=== PATIENT | female | born 1945 | race Caucasian/White ===

== ENCOUNTER 2019-08-12 14:31 | Inpatient (IN) ==
[2019-08-12] MEDS ORDERED: IOPAMIDOL 100 ML BOTTLE IV ONE (14:32)
[2019-08-12] MEDS ORDERED: PIPERACILLIN SODIUM/TAZOBACTAM 3.375 GM in DEXTROSE 5% IN WATER 50 ML IV ONE (15:12)
[2019-08-12 15:24] LABS: POC Blood Urea Nitrogen 13 mg/dl (8-23); POC CO2 21 mmol/L (22-30); POC Calcium, Ionized 1.11 mmol/L (1.16-1.32); POC Chloride 108 mmol/L (96-108); POC Creatinine 0.7 mg/dl (0.6-1.1); POC Glucose, Random 155 mg/dL (70-105); POC Sodium 140 mmol/L (133-145)
[2019-08-12] MEDS ORDERED: ONDANSETRON 4 MG/2 ML VIAL IV ONE (15:53)
[2019-08-12 16:25] LABS: ALT/SGPT 135 U/l (0-40); AST/SGOT 163 U/l (0-37); Albumin 4.5 gm/dL (3.2-5.2); Albumin/Globulin Ratio 1.5 (1.0-2.3); Alkaline Phosphatase 98 U/L (39-117); Bilirubin,Total 0.6 mg/dL (0.0-1.0); Blood Urea Nitrogen 12 mg/dl (8-23); Calcium 9.6 mg/dl (8.6-10.4); Carbon Dioxide 18 mmol/L (22-30); Chloride 102 mmol/L (96-108); Glomerular Filtration Rate 72; Glucose 154 mg/dL (70-105)
[2019-08-12 16:32] LABS: Basophils # (Auto) 0.04 K/mcL (0.00-0.30); Basophils % (Auto) 0.3 % (0.0-2.0); Eosinophils # (Auto) 0 K/mcL (0.00-0.70); Eosinophils % (Auto) 0 % (0.0-7.0); Granulocytes % (Auto) 84.8 % (38.0-78.0); Hematocrit 39.4 % (34.1-44.9); Hemoglobin 13.3 g/dL (11.2-15.7); Lymphocytes # (Auto) 1.26 K/mcL (1.50-4.80); Lymphocytes % (Auto) 9.9 % (15.5-49.0); Mean Cell Volume 93.1 fL (80.0-100.0); Mean Corpuscular HGB Conc 33.8 g/dL (31.0-36.0); Monocytes # (Auto) 0.64 K/mcL (0.10-0.90); Platelet Count 232 K/mcL (140-440); RBC 4.23 M/mcL (3.59-5.38); Red Cell Distribution Width 13.9 % (11.5-14.5); WBC 12.7 K/mcL (4.50-11.00)
--- NOTE | 2019-08-12 16:35 | Emergency Department Note ---
Abdominal Pain HPI - General Chief Complaint: Abdominal Pain Stated Complaint: abdominal pain with shortness of breath Time Seen by Provider: 08/12/19 14:38 Source: patient Mode of arrival: ambulatory Limitations: no limitations - History of Present Illness HPI Narrative: 73-year-old female presents with sudden onset of nausea and vomiting with both abdominal pain and shortness of breath last night. Continued throughout the night and she was miserable. Presented to minor care today and they sent her over here due to abdominal distention and shortness of breath. No chest pain but describes diffuse upper abdominal pain which is worse on the right side but does spread all the way across the upper abdomen. Has had some diarrhea in the last 10 hours as well. No fever or chills. Denies cough or cold symptoms but states she does get short of breath at times. No difficulty breathing. No sore throat or ear pain. No nasal congestion. No headache. No leg pain or swelling. - Related Data Home Medications Medication Instructions Recorded Confirmed escitalopram oxalate 10 mg tablet 10 mg PO QHS tab 04/26/19 08/12/19 Allergies Allergy/AdvReac Type Severity Reaction Status Date / Time No Known Drug Allergies Allergy Verified 08/12/19 13:44 Review of Systems All systems ED: reviewed and negative except as stated. Abdominal Pain PMH - Past Medical History FORMERLY [facility], 1928–1983 Narrative: Medical History (Last Reviewed 08/12/19 @ 13:47 by Bernadette Nickerson PA-C) Encounter for cervical Pap smear with pelvic exam (Chronic 11/21/12) Hx of mammogram (Chronic 08/13/15) Well adult exam (Chronic) Impacted cerumen, bilateral (Chronic) Diverticulitis of colon without hemorrhage (Chronic) Diverticulosis of colon without hemorrhage (Chronic) Past Surgical History (Last Reviewed 08/12/19 @ 13:47 by Bernadette Nickerson PA-C) Hx of colonoscopy (Chronic 10/20/16) H/O dilation and curettage (Chronic) H/O lithotripsy (Chronic) - Social History Smoking status: Never smoker Alcohol use: Reports: Rarely Drug use: Reports: none Physical Exam Limitations: no limitations General appearance: alert Head: atraumatic, normocephalic, normal inspection Eye: Present: normal appearance. Absent: conjunctival injection ENT: Present: normal oropharynx, mucous membranes moist, TM's normal bilaterally, normal external ear exam Neck: Present: normal inspection, trachea midline. Absent: tenderness, lymphadenopathy Chest: Present: normal inspection, symmetric chest wall rise Respiratory: Present: normal lung sounds bilaterally, other (Slightly diminished in the bases bilaterally otherwise clear throughout). Absent: respiratory distress, rales/crackles, accessory muscle use Cardiovascular: Present: regular rate, normal heart sounds Abdominal: Present: soft, distention (Mild diffuse distention), tenderness (Tenderness to right and left upper quadrants but primarily right), normal bowel sounds. Absent: guarding, rebound, mass Extremities: Present: normal inspection. Absent: pedal edema Neurological: Present: alert, oriented X3 Psychiatric: Present: normal affect, normal mood Skin: Present: warm, dry, intact, normal color. Absent: rash, hives, cyanosis, diaphoresis Course Course Narrative: At 1800 Dr. Dupont agrees to accept patient and Dr. Kendrick, hospitalist will consult Vital Signs Temperature 97.5 F 08/12/19 14:33 Pulse Rate 64 08/12/19 14:33 Respiratory Rate 18 08/12/19 14:33 Blood Pressure 170/88 08/12/19 14:33 Pulse Oximetry (%) 96 08/12/19 14:33 Temperature 97.5 F 08/12/19 14:33 Pulse Rate 76 08/12/19 17:01 Respiratory Rate 33 H 08/12/19 17:01 Blood Pressure 169/79 08/12/19 17:01 Pulse Oximetry (%) 91 08/12/19 17:01 Abdominal Pain - Lab Data Lab results reviewed: Yes I reviewed the patient's lab results. Result diagrams: 08/12/19 15:05 08/12/19 15:05 Lab Results 08/12/19 08/12/19 08/12/19 Range/Units 15:05 15:05 15:05 WBC 12.7 H (4.50-11.00) K/mcL RBC 4.23 (3.59-5.38) M/mcL Hgb 13.3 (11.2-15.7) g/dL Hct 39.4 (34.1-44.9) % POC Hct 41.0 (36.0-48.0) % MCV 93.1 (80.0-100.0) fL MCH 31.4 (26.0-34.0) pg MCHC 33.8 (31.0-36.0) g/dL RDW 13.9 (11.5-14.5) % Plt Count 232 (140-440) K/mcL MPV 12.0 H (7.4-10.4) fL Gran % 84.8 H (38.0-78.0) % Lymph % (Auto) 9.9 L (15.5-49.0) % [place] % (Auto) 5.0 (1.0-12.0) % Eos % (Auto) 0 (0.0-7.0) % Baso % (Auto) 0.3 (0.0-2.0) % Gran # 10.78 H (1.80-8.00) K/mcL Lymph # (Auto) 1.26 L (1.50-4.80) K/mcL [place] # (Auto) 0.64 (0.10-0.90) K/mcL Eos # (Auto) 0 (0.00-0.70) K/mcL Baso # (Auto) 0.04 (0.00-0.30) K/mcL VBG Lactic Acid (0.5-2.0) mmol/L POC Sodium 140 (133-145) mmol/L Sodium 139 (133-145) mmol/L POC Potassium 4.0 (3.3-5.1) mmol/L Potassium 4.0 (3.3-5.1) mmol/L POC Chloride 108 (96-108) mmol/L Chloride 102 (96-108) mmol/L Carbon Dioxide 18 L (22-30) mmol/L POC Total CO2 21 L (22-30) mmol/L Anion Gap 19.0 H (8-16) POC BUN 13 (8-23) mg/dl BUN 12 (8-23) mg/dl Creatinine 0.8 (0.6-1.1) mg/dl POC Creatinine 0.7 (0.6-1.1) mg/dl GFR Calculation 72 Glucose 154 H (70-105) mg/dL POC Glucose 155 H (70-105) mg/dL Calcium 9.6 (8.6-10.4) mg/dl POC WB Ioniz Calcium 1.11 L (1.16-1.32) mmol/L Total Bilirubin 0.6 (0.0-1.0) mg/dL AST 163 H (0-37) U/l ALT 135 H (0-40) U/l Alkaline Phosphatase 98 (39-117) U/L Troponin T < 0.01 (0-0.03) ng/ml NT-Pro-B Natriuret Pep 3063.0 H (0-450) pg/ml Total Protein 7.5 (5.9-8.4) gm/dL Albumin 4.5 (3.2-5.2) gm/dL Globulin 3.0 (2.2-3.7) gm/dL Albumin/Globulin Ratio 1.5 (1.0-2.3) Lipase 19 (7-60) U/L 08/12/19 Range/Units 15:43 WBC (4.50-11.00) K/mcL RBC (3.59-5.38) M/mcL Hgb (11.2-15.7) g/dL Hct (34.1-44.9) % POC Hct (36.0-48.0) % MCV (80.0-100.0) fL MCH (26.0-34.0) pg MCHC (31.0-36.0) g/dL RDW (11.5-14.5) % Plt Count (140-440) K/mcL MPV (7.4-10.4) fL Gran % (38.0-78.0) % Lymph % (Auto) (15.5-49.0) % [place] % (Auto) (1.0-12.0) % Eos % (Auto) (0.0-7.0) % Baso % (Auto) (0.0-2.0) % Gran # (1.80-8.00) K/mcL Lymph # (Auto) (1.50-4.80) K/mcL [place] # (Auto) (0.10-0.90) K/mcL Eos # (Auto) (0.00-0.70) K/mcL Baso # (Auto) (0.00-0.30) K/mcL VBG Lactic Acid 2.5 H (0.5-2.0) mmol/L POC Sodium (133-145) mmol/L Sodium (133-145) mmol/L POC Potassium (3.3-5.1) mmol/L Potassium (3.3-5.1) mmol/L POC Chloride (96-108) mmol/L Chloride (96-108) mmol/L Carbon Dioxide (22-30) mmol/L POC Total CO2 (22-30) mmol/L Anion Gap (8-16) POC BUN (8-23) mg/dl BUN (8-23) mg/dl Creatinine (0.6-1.1) mg/dl POC Creatinine (0.6-1.1) mg/dl GFR Calculation Glucose (70-105) mg/dL POC Glucose (70-105) mg/dL Calcium (8.6-10.4) mg/dl POC WB Ioniz Calcium (1.16-1.32) mmol/L Total Bilirubin (0.0-1.0) mg/dL AST (0-37) U/l ALT (0-40) U/l Alkaline Phosphatase (39-117) U/L Troponin T (0-0.03) ng/ml NT-Pro-B Natriuret Pep (0-450) pg/ml Total Protein (5.9-8.4) gm/dL Albumin (3.2-5.2) gm/dL Globulin (2.2-3.7) gm/dL Albumin/Globulin Ratio (1.0-2.3) Lipase (7-60) U/L - Radiology Data Radiology results reviewed: Yes I reviewed the patient's radiology results. Disposition Pt seen by WAIST FITTER/PA only: Yes Clinical Impression: Pneumonia, Abdominal pain Disposition: Xfer As Inpt ([facility]) Condition: Fair Referrals: Angelique Mattson ARNP [Primary Care Provider] - Time of Disposition: 18:44
--- NOTE | 2019-08-12 17:00 | Cat Scan Report ---
CLINICAL INFORMATION: Abdominal pain nausea and vomiting COMPARISON: None. TECHNIQUE: Following enteric contrast, 80 cc of Isovue-370 were injected intravenously, and 60 seconds later, 0.625 mm helical slices were obtained from the mid heart through the subtrochanteric regions. Following reconstruction, 2.5 mm sagittal, coronal and axial reformatted images were processed and reviewed at bone, lung and soft tissue windows. Five minutes later, 0.625 mm helical slices were obtained from the mid heart through the kidneys and viewed at soft tissue windows.The exam was performed using radiation dose optimization techniques including, but not limited to, automated exposure control, adjustment of the mA and/or kV according to patient size and use of iterative reconstruction technique. FINDINGS: Lung bases show moderate interstitial disease, presumably interstitial fibrosis, featuring thickening of the interlobular and intralobular septa and also chronic bronchitis. There are also patchy groundglass airspace disease in the periphery of both lower lobes. Small right and tiny left pleural effusions noted. The heart is mildly enlarged. Small hiatal hernia noted. Abdominal images show scattered transient attenuation difference foci in the periphery of the right and left hepatic lobes and the jose hepatis. No significant focal hepatic abnormality. The gallbladder is moderately distended but the wall is normal thickness and there are no stones. Intrahepatic and common bile ducts are normal caliber: CBD is 6 mm. There is a 5 mm nonobstructing stone inferior calyx of the left kidney, however the remainder of both kidneys are normal. Mild bilateral adrenal hyperplasia appreciated. The pancreas and spleen are unremarkable. Aorta is normal diameter with scattered atherosclerotic plaque. There is a 50% stenosis right renal artery origin. The celiac, SMA, left renal artery and EDGARDO containing plaque but no definite stenoses. Moderate intraperitoneal fluid surrounds the duodenal bulb.. There is also mild wall thickening and enhancement of the duodenal bulb. The possibility of a perforated peptic ulcer should be entertained. The remaining stomach small and large bowel are unremarkable with exception of sigmoid diverticulosis. Appendix is normal. Pelvic images show urinary bladder is normal. A normal postmenopausal anteflexed uterus is appreciated. The region of the ovaries is unremarkable. Small amount of free fluid noted in the deep true pelvis as well. Bone windows show no osseous abnormality IMPRESSION: Moderate free intraperitoneal fluid in the periduodenal region suggesting the possibility of duodenal ulcer perforation. There is no free air, however. Suggest general surgery consult. If needed, positive enteric contrast could be administered and the upper abdomen could be rescanned in the same exam to determine the site of perforation, if present. Pancreatitis should also be excluded with lipase and amylase measurement Moderate interstitial disease in both lung bases - interstitial fibrosis is suspected. Small right and tiny left pleural effusions appreciated. When the patient returns a clinical baseline, consider chest CT to evaluate the entire lungs. 5 mm nonobstructing stone at inferior calyx left kidney. 50% stenosis of in the right renal artery. Sigmoid diverticulosis Interpreted and Authenticated by: Jimmie Garcia 08/12/19
--- NOTE | 2019-08-12 18:40 | General Surg History&Physical ---
History of Present Illness Patient information: Note initiated : 08/12/19 at 6:34 pm Service Date, if different from initiated Date: [] Patient: Linda Dominguez a 73 y/o F admitted on for Abd Pain w/SOB. Chief Complaint: [] HPI: Ms. Dominguez is a 73 year old F admitted with complaint of nausea vomiting diarrhea and right-sided abdominal pain. The patient had onset of severe pain in the epigastrium and right upper quadrant about 1 AM. This was followed by nausea vomiting and episodic diarrhea. She also had some shortness of breath. The right sciatic pain became worse and she finally was seen in the minor clinic and referred to the emergency room because of interpretation of her chest x-ray as showing pneumonitis. CT of the abdomen is done and it is interpreted as showing some fluid around the first portion of the duodenum. The patient also has a very large distended gallbladder. No stones were seen. On questioning the patient points specifically to the palpable mass in her right upper quadrant which is compatible with the location of her gallbladder. She is very symptomatic and will be admitted but ultrasound of the gallbladder will be done. Review of Systems All systems PM: reviewed and no additional remarkable complaints except as stated (totally negative. Any symptoms of any kind) Past History Past medical history: No medical illness Past surgical history: No prior surgery but she did have lithotripsy of her left kidney Past family history: Mother age 75 due to complications of COPD Father in his 80s due to complications of diabetes Past social history: Denies tobacco use Drinks alcohol twice weekly Denies drug use Medications and Allergies Home Medications Medication Instructions Recorded Confirmed Type escitalopram oxalate 10 mg tablet 10 mg PO QHS tab 04/26/19 08/12/19 History Allergies Allergy/AdvReac Type Severity Reaction Status Date / Time No Known Drug Allergies Allergy Verified 08/12/19 13:44 Exam Temp Pulse Resp BP Pulse Ox 97.5 F 76 33 H 169/79 91 08/12/19 14:33 08/12/19 17:01 08/12/19 17:01 08/12/19 17:08/12/19 17:01 - General physical appearance well developed, well nourished, no distress - Eyes PERRL, normal ocular movement. negative: icteric - ENT normal pinna, normal nares, normal mucosa, no hearing loss, no congestion - Head Head exam IM: Present: atraumatic, normocephalic - Neck no masses, no bruits, trachea midline, no lymphadenopathy, no venous distension - Cardiovascular Cardiovascular exam IM: Present: normal rate and rhythm - Respiratory normal expansion, normal respiratory effort, clear to percussion, clear to auscultation - Abdomen Abdomen: Present: soft, tender (tenderness to palpation in right subcostal region at about mid axillary line with palpable mass; moderate tenderness in epigastrium), bowel sounds Hernia: Present: none - Genitourinary Present: normal external genitalia - Integumentary Present: no rash, no growths, no abnormal pigmentation - Neurologic Present: normal coordination, normal sensation - Musculoskeletal Present: normal gait, normal posture - Psychiatric Present: oriented to time, oriented to person, oriented to place, speech is normal, memory intact Assessment and Plan (1) Right upper quadrant abdominal pain with positive Carr's Sign Clinical history and findings suggest biliary tract disease We'll get urgent gallbladder ultrasound tonight Admit for possible cholecystectomy in 1-2 days Status: Acute (2) Nausea and vomiting Treat symptomatically with antiemetics and analgesics Status: Acute (3) Infiltrate of lower lobe of right lung present on imaging study Infiltrate will be covered by antibiotics used to treat possible acute cholecystitis Status: Acute
--- NOTE | 2019-08-12 18:44 | Internal Medicine Consult Note ---
Medical - CN: [facility] - Data of Consult Consult date: 08/12/19 Primary Care Provider: Angelique Mattson - Consult Narrative History of present illness: Ms. Dominguez is a 73 year old F Presents the ED with complaints of nausea vomiting and severe abdominal pain with some shortness of breath last night. Went to minor care for abdominal distention and shortness of breath. No cough, no fever or chills. Patient reports she went to bed feeling relatively well, feeling a little bloated. Woke up at 1 AM with nausea vomiting multiple episodes she also had several episodes of diarrhea. She also had shortness of breath at that time. She describes the pain as diffuse but worse in the upper abdomen and describes an achy pain. As of breath is improved. Pain better improved with pain medications. Imaging was done which was concerning for possible duodenal ulcer perforation versus more gallbladder related. Gallbladder notably distended on imaging. Dr. Dupont was contacted. Denies any fevers or chills she has no cough. Oxygen saturation 91 to 96% on room air, the imaging concerning for some fibrosis. No recent illnesses. No history of heart failure or pulmonary disease or gallbladder issues. Work-up in the ED showed a mild leukocytosis and a mild elevated lactate. Elevated proBNP and liver enzymes. CT abdomen pelvis showed lung bases with interstitial disease presumably fibrosis as well as intraperitoneal fluid in the periduodenal region concerning for possible duodenal perforation. Review of Systems: Positive as above. Denies headache/fever/chills/chest pain/cough. Remaining 10 point review of system reviewed negative. CC: Medical - CN: [facility] Medical history: Medical History (Last Reviewed 08/12/19 @ 13:47 by Bernadette Nickerson PA-C) Encounter for cervical Pap smear with pelvic exam (Chronic 11/21/12) Hx of mammogram (Chronic 08/13/15) Well adult exam (Chronic) Impacted cerumen, bilateral (Chronic) Diverticulitis of colon without hemorrhage (Chronic) Diverticulosis of colon without hemorrhage (Chronic) Past Surgical History (Last Reviewed 08/12/19 @ 13:47 by Bernadette Nickerson PA-C) Hx of colonoscopy (Chronic 10/20/16) H/O dilation and curettage (Chronic) H/O lithotripsy (Chronic) Family History (Last Reviewed 08/12/19 @ 13:47 by Bernadette Nickerson PA-C) Mother COPD (chronic obstructive pulmonary disease) Father COPD (chronic obstructive pulmonary disease) Bladder cancer Sister Graves disease Social History (Last Updated 08/12/19 @ 14:29 by Bernadette Nickerson PA-C) Denies tobacco abuse Drinks several glasses of wine per week Lives at home with her Medical - CN: Meds Home Medications Medication Instructions Recorded Confirmed Type escitalopram oxalate 10 mg tablet 10 mg PO QHS tab 04/26/19 08/12/19 History Allergies Allergy/AdvReac Type Severity Reaction Status Date / Time No Known Drug Allergies Allergy Verified 08/12/19 13:44 Medical - CN: Exam - Constitutional Vitals: Temp Pulse Resp BP Pulse Ox 97.5 F 76 33 H 169/79 91 08/12/19 14:33 08/12/19 17:01 08/12/19 17:01 08/12/19 17:01 08/12/19 17:01 Exam: General: Alert, Awake, No acute Distress, obese Eyes/N/T: EOMI, PERRL, dry MM Head/Neck: neck supple, normocephalic atraumatic CV: RRR, No murmurs, normal s1/s2 Pulm: mild bibasilar rales, no wheezing/rhonchi Abd: soft, TTP RUQ/Epigastrium, +BS x4 Ext: no clubbing/cyanosis/edema Neuro: Alert, no focal deficits, moves all extremities, CN 2-12 grossly intact, symmetrical strength b/l upper/lower, sensations intact b/l upper/lower Skin: warm/dry Medical - CN: Result - Labs CBC & Chem 7: 08/12/19 15:05 08/12/19 15:05 Labs: Short CBC 08/12/19 Range/Units 15:05 WBC 12.7 H (4.50-11.00) K/mcL Hgb 13.3 (11.2-15.7) g/dL Hct 39.4 (34.1-44.9) % Plt Count 232 (140-440) K/mcL BMP 08/12/19 15:05 Sodium 139 Potassium 4.0 Chloride 102 Carbon Dioxide 18 L BUN 12 Creatinine 0.8 Glucose 154 H Calcium 9.6 Cardiac Enzymes 08/12/19 Range/Units 15:05 Troponin T < 0.01 (0-0.03) ng/ml Liver Function 08/12/19 Range/Units 15:05 Total Bilirubin 0.6 (0.0-1.0) mg/dL AST 163 H (0-37) U/l ALT 135 H (0-40) U/l Alkaline Phosphatase 98 (39-117) U/L Albumin 4.5 (3.2-5.2) gm/dL Medical - CN: A/P - Narrative A/P Narrative: A: *Abd pain with N/V, 2/2 Cholecystitis: *Right side infiltrate and pulm vasc congestion on CXR, CT showing lower lobe fibrosis: Aspiration vs ?PNA vs Fiboris vs Edema from intraabdominal process -no cough/fever, on room air *HTN: likely pain related *mild lactic acidsos: 2/2 above *Obesity: *Transaminitis: 2/2 abdominal process *Depression: P: -Zosyn -Abdominal w/u per Dr. Dupont, pending GB u/s -CT chest tomorrow to evaluate for fibrosis vs edema vs pna/aspiration -IS, monitor pulmonary status -Diet per Surgery - -cont SSRI -ppx: SCD DNR
[2019-08-12] MEDS ORDERED: ZOLPIDEM 5 MG TABLET PO PRN (18:45)
[2019-08-12] MEDS ORDERED: ONDANSETRON 4 MG/2 ML VIAL IV PRN (18:45)
[2019-08-12 19:22] LABS: Appearance,Urine CLEAR; Bacteria,Urine 0 /hpf (0); Bilirubin,Urine NEG (NEG); Color,Urine YELLOW; Culture Indicated,Urine NO; Glucose,Urine (UA) 50 mg/dL (NEG); Ketones,Urine NEG (NEG); Leukocyte Esterase,Urine NEG /uL (NEG); Mucus,Urine FEW /hpf (0); Nitrate,Urine NEG (NEG); Protein,Urine 30 mg/dL (NEG); Specific Gravity,Urine 1.047 (1.000-1.035); Urine Blood 0.2 mg/dL (<0.03); Urine RBC 6 /hpf (0-1); Urine Squamous Epithelial Cell < 1 /hpf (0-4); Urine WBC 2 /hpf (0-4); Urobilinogen,Urine NEG (NEG)
[2019-08-12] MEDS: 0.9 % SODIUM CHLORIDE 10 ML SYRINGE IV SCH (20:44)
[2019-08-12] MEDS: 0.9 % SODIUM CHLORIDE 1,000 ML IV SCH (20:44)
[2019-08-12] MEDS: PIPERACILLIN SODIUM/TAZOBACTAM 3.375 GM in DEXTROSE 5% IN WATER 50 ML IV SCH (23:39)
--- NOTE | 2019-08-13 04:07 | Ultrasound Report ---
CLINICAL INFORMATION: Upper quadrant pain COMPARISON: None. FINDINGS: The gallbladder is distended with mild diffuse wall thickening - 4 mm. Multiple small stones layer dependently within the gallbladder. No focal tenderness. Common bile duct is normal: 6 mm. Liver is normal in size with elevated echotexture suggesting fatty change, but no focal hepatic lesion. The pancreas is normal. Small amount of free intraperineal fluid in the jose hepatis. Right kidney is unremarkable. IMPRESSION: Multiple small stones in the gallbladder with moderate gallbladder distention and mild wall thickening compatible with cholecystitis. This is likely reason for free fluid in the right upper quadrant on recent CT. Interpreted and Authenticated by: Jimmie Garcia 08/13/19
[2019-08-13] MEDS: PIPERACILLIN SODIUM/TAZOBACTAM 3.375 GM in DEXTROSE 5% IN WATER 50 ML IV SCH ×4 (06:00→23:29)
[2019-08-13] MEDS: 0.9 % SODIUM CHLORIDE 10 ML SYRINGE IV SCH ×3 (06:00→21:32)
[2019-08-13 07:04] LABS: Basophils # (Auto) 0.04 K/mcL (0.00-0.30); Basophils % (Auto) 0.3 % (0.0-2.0); Eosinophils # (Auto) 0.01 K/mcL (0.00-0.70); Eosinophils % (Auto) 0.1 % (0.0-7.0); Granulocytes % (Auto) 84.9 % (38.0-78.0); Hematocrit 37.1 % (34.1-44.9); Hemoglobin 11.9 g/dL (11.2-15.7); Lymphocytes # (Auto) 1.32 K/mcL (1.50-4.80); Lymphocytes % (Auto) 9.2 % (15.5-49.0); Mean Cell Volume 96.4 fL (80.0-100.0); Mean Corpuscular HGB Conc 32.1 g/dL (31.0-36.0); Mean Platelet Volume 11.8 fL (7.4-10.4); Monocytes # (Auto) 0.79 K/mcL (0.10-0.90); Monocytes % (Auto) 5.5 % (1.0-12.0); Platelet Count 219 K/mcL (140-440); RBC 3.85 M/mcL (3.59-5.38); Red Cell Distribution Width 14.1 % (11.5-14.5); WBC 14.4 K/mcL (4.50-11.00)
[2019-08-13 07:39] LABS: ALT/SGPT 119 U/l (0-40); AST/SGOT 107 U/l (0-37); Albumin 3.6 gm/dL (3.2-5.2); Albumin/Globulin Ratio 1.3 (1.0-2.3); Alkaline Phosphatase 84 U/L (39-117); Bilirubin,Direct 0.2 mg/dL (0.0-0.3); Bilirubin,Total 0.8 mg/dL (0.0-1.0); Blood Urea Nitrogen 12 mg/dl (8-23); Calcium 8.8 mg/dl (8.6-10.4); Carbon Dioxide 19 mmol/L (22-30); Chloride 107 mmol/L (96-108); Globulin 2.7 gm/dL (2.2-3.7); Glomerular Filtration Rate 72; Glucose 134 mg/dL (70-105); Lactate Dehydrogenase 303 U/L (94-250); Phosphorous 2.9 mg/dL (2.7-4.5); Triglycerides 128 mg/dl (<150); Uric Acid 3.8 mg/dL (2.5-8.0)
--- NOTE | 2019-08-13 07:43 | Internal Med Progress Note ---
Medical - PN: Subj Patient information: Note initiated : 08/13/19 at 7:39 am Service Date, if different from initiated Date: [] Patient: Linda Dominguez a 73 y/o F admitted on 08/12/19 for Abd Pain w/SOB. Chief Complaint: [] Interval history: Ms. Dominguez is a 73 year old F Presents the ED with complaints of nausea vomiting and severe abdominal pain with some shortness of breath last night. Went to minor care for abdominal distention and shortness of breath. No cough, no fever or chills. Patient reports she went to bed feeling relatively well, feeling a little bloated. Woke up at 1 AM with nausea vomiting multiple episodes she also had several episodes of diarrhea. She also had shortness of breath at that time. She describes the pain as diffuse but worse in the upper abdomen and describes an achy pain. As of breath is improved. Pain better improved with pain medications. Imaging was done which was concerning for possible duodenal ulcer perforation versus more gallbladder related. Gallbladder notably distended on imaging. Dr. Dupont was contacted. Denies any fevers or chills she has no cough. Oxygen saturation 91 to 96% on room air, the imaging concerning for some fibrosis. No recent illnesses. No history of heart failure or pulmonary disease or gallbladder issues. Work-up in the ED showed a mild leukocytosis and a mild elevated lactate. Elevated proBNP and liver enzymes. CT abdomen pelvis showed lung bases with interstitial disease presumably fibrosis as well as intraperitoneal fluid in the periduodenal region concerning for possible duodenal perforation. 6/2 Feeling little better this morning. Was able to sleep last night. Abdominal pain still present but controlled with pain medication. Sitting up in chair on room air. Leukocytosis mildly worse but afebrile and again feeling better. Review of Systems: denies headache/fever/chills/nausea/vomiting/chest pain/cough/dyspnea/diarrhea. Otherwise see above. - Constitutional Vitals: Vital Signs Temp Pulse Resp BP Pulse Ox 99.2 F H 77 18 142/62 97 08/13/19 04:01 08/13/19 04:01 08/13/19 04:01 08/13/19 04:01 08/13/19 04:01 Period Temp Pulse Resp BP Sys/Sanches Pulse Ox Last 24 Hr 97.5 F-99.2 F 64-83 18-33 142-184/62-88 91-97 Intake and Output 08/12/19 08/13/19 08/13/19 21:59 05:59 13:59 Intake Total 50 50 Balance 50 50 Weight 87.77 kg Intake & Output: Intake & Output 08/12/19 08/13/19 08/13/19 21:59 05:59 13:59 Intake Total 50 50 Balance 50 50 Weight 87.77 kg Intake: IV 50 50 Zosyn 3.375 gm In Dextrose 5% 50 50 in Water 50 ml @ 100 mls/hr IV Q6H [facility] Rx#:[id number] Oral 0 Exam: General: Alert, Awake, No acute Distress, obese Eyes/N/T: EOMI, Head/Neck: neck supple, CV: RRR, No murmurs, Pulm: mild rales right base, no wheezing/rhonchi Abd: soft, TTP RUQ/Epigastrium, +BS x4 Ext: no clubbing/cyanosis/edema Neuro: Alert, no focal deficits, moves all extremities, Skin: warm/dry Medical - PN: Obj Da - Labs CBC & Chem 7: 08/13/19 04:57 08/13/19 04:57 Labs: Abnormal Lab Results 08/13/19 08/13/19 08/12/19 04:57 04:57 18:15 WBC 14.4 H MPV 11.8 H Gran % 84.9 H Lymph % (Auto) 9.2 L Gran # 12.22 H Lymph # (Auto) 1.32 L VBG Lactic Acid Carbon Dioxide POC Total CO2 Anion Gap Glucose POC Glucose POC WB Ioniz Calcium AST ALT NT-Pro-B Natriuret Pep 5846.0 H Ur Specific [place] 1.047 H Urine Protein 30 A Urine Glucose (UA) 50 A Urine Occult Blood 0.2 A Urine RBC 6 H 08/12/19 08/12/19 08/12/19 15:43 15:05 15:05 WBC 12.7 H MPV 12.0 H Gran % 84.8 H Lymph % (Auto) 9.9 L Gran # 10.78 H Lymph # (Auto) 1.26 L VBG Lactic Acid 2.5 H Carbon Dioxide 18 L POC Total CO2 21 L Anion Gap 19.0 H Glucose 154 H POC Glucose 155 H POC WB Ioniz Calcium 1.11 L AST 163 H ALT 135 H NT-Pro-B Natriuret Pep 3063.0 H Ur Specific [place] Urine Protein Urine Glucose (UA) Urine Occult Blood Urine RBC Meds: Medications Sodium Chloride (Sodium Chloride 0.9%) 1,000 mls @ 50 mls/hr IV .Q20H [facility] Last Admin: 08/12/19 20:44 Dose: 50 mls/hr Documented by: Piperacillin Sod/Tazobactam (Sod 3.375 gm/ Dextrose) 50 mls @ 100 mls/hr IV Q6H [facility]; Protocol Last Admin: 08/13/19 06:00 Dose: 100 mls/hr Documented by: Ondansetron HCl (Zofran) 4 mg IV Q6HP PRN PRN Reason: Nausea And Vomiting Sodium Chloride (Saline Flush) 10 ml IV Q8 [facility] Last Admin: 08/13/19 06:00 Dose: Not Given Documented by: Zolpidem Tartrate (Ambien) 5 mg PO HSP PRN PRN Reason: Insomnia Medical - PN: A/P - Time Spent With Patient Total time spent is greater than 50% in coordination of care (as documented) at patient's floor/unit and/or counseling patient: - Narrative A/P Narrative: A: *Acute Cholecystitis: *Pleural effusions R>L: 2/2 abdominal process vs CHF -on room air while awake -CT chest showing effusions and pulm edema, ?aspiration *HTN: likely pain related *mild lactic acidsos: 2/2 above *Obesity: *Transaminitis: 2/2 abdominal process *Depression: P: -Zosyn -Abdominal w/u per Dr. Dupont, pending u/s -CT to evaluate for fibrosis vs edema vs pna/aspiration -IS, monitor pulmonary status -may need thoracentesis if need supp oxygen? -Diet per Surgery -echo pending -ST eval -cont SSRI -ppx: SCD DNR Medical - PN: Qual - Stroke Symptom Onset Unknown: No - VTE Deep Vein Thrombosis/Pulmonary Embolism Present on Admission: No
[2019-08-13] MEDS ORDERED: ACETAMINOPHEN 1,000 MG/100 ML BOTTLE IV PRN (13:03)
[2019-08-13] MEDS ORDERED: FUROSEMIDE 20 MG/2 ML VIAL IV ONE ×2 (13:48→21:00)
[2019-08-13] MEDS: 0.9 % SODIUM CHLORIDE 1,000 ML IV SCH ×2 (14:53→23:31)
--- NOTE | 2019-08-13 16:34 | Cat Scan Report ---
CLINICAL INFORMATION: Shortness of breath COMPARISON: None TECHNIQUE: 0.625 mm axial slices were obtained from the lung apices through the bases without intravenous contrast. 2.5 mm Sagittal, coronal and axial reformatted images were processed and reviewed at bone, lung and soft tissue windows. 7 mm axial MIP images were also reconstructed to optimize pulmonary nodule detection.The exam was performed using radiation dose optimization techniques including, but not limited to, automated exposure control, adjustment of the mA and/or kV according to patient size and use of iterative reconstruction technique. FINDINGS: Moderate distention of the pulmonary vasculature is edema in the interlobular septa. Mild diffuse patchy groundglass airspace disease predominantly peribronchovascular distribution in the upper and lower lobe. Moderate right and small left pleural effusions have increased slightly. Mediastinal windows show the thoracic aorta be normal in diameter. There are a few mildly enlarged lymph nodes in the mediastinum in the pericarinal and paratracheal region ranging up to 12 mm these may be related to CHF. Small hiatal hernia noted. Thyroid is unremarkable. Bones and soft tissues the chest wall show no abnormality. Images Abdomen again show moderate distention of the gallbladder with wall thickening and pericholecystic fluid. Findings suggestive of cholecystitis IMPRESSION: 1. Moderate CHF. Consider diuretic trial. 2. Moderate hiatal hernia with patchy bibasilar airspace disease. Patient may have superimposed aspiration pneumonia. Consider swallowing function tests to evaluate for aspiration. 3. Moderate right and small left pleural effusion increasing 4. Cholecystitis. Progressing radiographically since prior abdomen CT Interpreted and Authenticated by: Jimmie Garcia 08/13/19
--- NOTE | 2019-08-13 17:12 | General Surgery Progress Note ---
Subjective Patient reports: feels better, still having pain, flatus, fever Narrative: Note initiated : 08/13/19 at 5:10 pm Service Date, if different from initiated Date: [] Patient: Linda Dominguez 73 y/o F admitted on 08/12/19 for Abd Pain w/SOB. Chief Complaint: [patient states that she feels better though she continues to have some right upper quadrant pain. She has temperature elevation to 100.7. White blood count 14.4, hemoglobin 11.9, hematocrit 37.1, BUN 12, creatinine 0.8. There is mild elevation in LFTs however alkaline phosphatase and bilirubin are normal. Echocardiogram shows left ventricular ejection fraction of 35-40%. Her proBNP is also over 4000.] Objective Temp Pulse Resp BP Pulse Ox 100.7 F H 80 18 123/54 96 08/13/19 13:25 08/13/19 11:39 08/13/19 11:39 08/13/19 11:39 08/13/19 11:39 - Additional Data Intake & Output - Last 24 hours: Intake & Output 08/11/19 08/12/19 08/13/19 08/14/19 05:59 05:59 05:59 05:59 Intake Total 100 560 Output Total 500 Balance 100 60 Weight 193 lb 8 oz 193 lb 8 oz - General physical appearance well developed, well nourished, no distress, moderate pain - Eyes PERRL, normal ocular movement - ENT normal pinna, normal nares, normal mucosa, no hearing loss, no congestion - Neck no masses, no bruits, trachea midline, no lymphadenopathy, no venous distension - Respiratory normal expansion, normal respiratory effort, clear to auscultation - Cardiovascular Cardiovascular exam: Present: normal rate and rhythm, +S1, +S2. Absent: JVD, RRR - Abdomen tender (moderate right subcostal tenderness with palpable mass;) - Integumentary no rash, no growths, no abnormal pigmentation - Neurologic normal coordination, normal sensation - Musculoskeletal normal gait, normal posture - Psychiatric oriented to time, oriented to person, oriented to place, speech is normal, memory intact - Labs 08/13/19 04:57 08/13/19 04:57 Diabetes panel 08/13/19 Range/Units 04:57 Sodium 140 (133-145) mmol/L Potassium 4.0 (3.3-5.1) mmol/L Chloride 107 (96-108) mmol/L Carbon Dioxide 19 L (22-30) mmol/L BUN 12 (8-23) mg/dl Creatinine 0.8 (0.6-1.1) mg/dl Glucose 134 H (70-105) mg/dL Calcium 8.8 (8.6-10.4) mg/dl AST 107 H (0-37) U/l ALT 119 H (0-40) U/l Alkaline Phosphatase 84 (39-117) U/L Total Protein 6.3 (5.9-8.4) gm/dL Albumin 3.6 (3.2-5.2) gm/dL Triglycerides 128 (<150) mg/dl Calcium panel 08/13/19 Range/Units 04:57 Calcium 8.8 (8.6-10.4) mg/dl Phosphorus 2.9 (2.7-4.5) mg/dL Albumin 3.6 (3.2-5.2) gm/dL Pituitary panel 08/13/19 Range/Units 04:57 Sodium 140 (133-145) mmol/L Potassium 4.0 (3.3-5.1) mmol/L Chloride 107 (96-108) mmol/L Carbon Dioxide 19 L (22-30) mmol/L BUN 12 (8-23) mg/dl Creatinine 0.8 (0.6-1.1) mg/dl Glucose 134 H (70-105) mg/dL Calcium 8.8 (8.6-10.4) mg/dl Adrenal panel 08/13/19 Range/Units 04:57 Sodium 140 (133-145) mmol/L Potassium 4.0 (3.3-5.1) mmol/L Chloride 107 (96-108) mmol/L Carbon Dioxide 19 L (22-30) mmol/L BUN 12 (8-23) mg/dl Creatinine 0.8 (0.6-1.1) mg/dl Glucose 134 H (70-105) mg/dL Calcium 8.8 (8.6-10.4) mg/dl Total Bilirubin 0.8 (0.0-1.0) mg/dL AST 107 H (0-37) U/l ALT 119 H (0-40) U/l Alkaline Phosphatase 84 (39-117) U/L Total Protein 6.3 (5.9-8.4) gm/dL Albumin 3.6 (3.2-5.2) gm/dL Assessment and Plan (1) Right upper quadrant abdominal pain with positive Carr's Sign Status: Acute Assessment and plan: Patient counseled for laparoscopic cholecystectomy which will be performed tomorrow Current Visit: Yes (2) Nausea and vomiting Status: Acute Assessment and plan: Clinically improved Current Visit: Yes (3) Infiltrate of lower lobe of right lung present on imaging study Status: Acute Current Visit: Yes - Time Spent With Patient Total time spent is greater than 50% in coordination of care (as documented) at patient's floor/unit and/or counseling patient:
[2019-08-13] MEDS ORDERED: FUROSEMIDE 40 MG/4 ML VIAL IV ONE ×3 (17:15→19:16)
[2019-08-13] MEDS ORDERED: METOPROLOL TARTRATE 5 MG/5 ML VIAL IV PRN (23:12)
[2019-08-13] MEDS ORDERED: DILTIAZEM 125 MG in DEXTROSE 5% IN WATER 100 ML IV SCH (23:15)
[2019-08-13] MEDS ORDERED: METOPROLOL TARTRATE 5 MG/5 ML VIAL IV ONE (23:21)
[2019-08-13] MEDS ORDERED: DILTIAZEM 125 MG in DEXTROSE 5% IN WATER 100 ML IV PRN (23:38)
[2019-08-14] MEDS ORDERED: METOPROLOL TARTRATE 5 MG/5 ML VIAL IV ONE ×4 (01:29→09:56)
[2019-08-14] MEDS: PIPERACILLIN SODIUM/TAZOBACTAM 3.375 GM in DEXTROSE 5% IN WATER 50 ML IV SCH ×4 (05:12→23:40)
[2019-08-14] MEDS: 0.9 % SODIUM CHLORIDE 10 ML SYRINGE IV SCH ×4 (05:12→20:52)
[2019-08-14 06:53] LABS: Basophils # (Auto) 0.04 K/mcL (0.00-0.30); Basophils % (Auto) 0.3 % (0.0-2.0); Eosinophils # (Auto) 0.05 K/mcL (0.00-0.70); Eosinophils % (Auto) 0.4 % (0.0-7.0); Granulocytes % (Auto) 73.8 % (38.0-78.0); Hematocrit 38.1 % (34.1-44.9); Hemoglobin 12.4 g/dL (11.2-15.7); Lymphocytes # (Auto) 1.92 K/mcL (1.50-4.80); Lymphocytes % (Auto) 16.8 % (15.5-49.0); Mean Cell Volume 95.3 fL (80.0-100.0); Mean Corpuscular HGB Conc 32.5 g/dL (31.0-36.0); Mean Platelet Volume 11.9 fL (7.4-10.4); Monocytes % (Auto) 8.7 % (1.0-12.0); Platelet Count 213 K/mcL (140-440); Red Cell Distribution Width 13.6 % (11.5-14.5); WBC 11.5 K/mcL (4.50-11.00)
[2019-08-14 07:07] LABS: ALT/SGPT 97 U/l (0-40); AST/SGOT 60 U/l (0-37); Albumin 3.2 gm/dL (3.2-5.2); Albumin/Globulin Ratio 1.1 (1.0-2.3); Alkaline Phosphatase 80 U/L (39-117); Bilirubin,Direct 0.2 mg/dL (0.0-0.3); Bilirubin,Total 0.9 mg/dL (0.0-1.0); Blood Urea Nitrogen 10 mg/dl (8-23); Calcium 8.4 mg/dl (8.6-10.4); Chloride 104 mmol/L (96-108); Globulin 2.9 gm/dL (2.2-3.7); Glomerular Filtration Rate 55; Glucose 116 mg/dL (70-105); Lactate Dehydrogenase 239 U/L (94-250); Triglycerides 139 mg/dl (<150); Uric Acid 3.5 mg/dL (2.5-8.0)
[2019-08-14 07:08] LABS: Carbon Dioxide 24 mmol/L (22-30); Phosphorous 2.3 mg/dL (2.7-4.5)
--- NOTE | 2019-08-14 07:09 | Internal Med Progress Note ---
Medical - PN: Subj Patient information: Note initiated : 08/14/19 at 7:06 am Service Date, if different from initiated Date: [] Patient: Linda Dominguez a 73 y/o F admitted on 08/12/19 for Abd Pain w/SOB. Chief Complaint: [] Interval history: Ms. Dominguez is a 73 year old F Presents the ED with complaints of nausea vomiting and severe abdominal pain with some shortness of breath last night. Went to minor care for abdominal distention and shortness of breath. No cough, no fever or chills. Patient reports she went to bed feeling relatively well, feeling a little bloated. Woke up at 1 AM with nausea vomiting multiple episodes she also had several episodes of diarrhea. She also had shortness of breath at that time. She describes the pain as diffuse but worse in the upper abdomen and describes an achy pain. As of breath is improved. Pain better improved with pain medications. Imaging was done which was concerning for possible duodenal ulcer perforation versus more gallbladder related. Gallbladder notably distended on imaging. Dr. Dupont was contacted. Denies any fevers or chills she has no cough. Oxygen saturation 91 to 96% on room air, the imaging concerning for some fibrosis. No recent illnesses. No history of heart failure or pulmonary disease or gallbladder issues. Work-up in the ED showed a mild leukocytosis and a mild elevated lactate. Elevated proBNP and liver enzymes. CT abdomen pelvis showed lung bases with interstitial disease presumably fibrosis as well as intraperitoneal fluid in the periduodenal region concerning for possible duodenal perforation. 6/2 Feeling little better this morning. Was able to sleep last night. Abdominal pain still present but controlled with pain medication. Sitting up in chair on room air. Leukocytosis mildly worse but afebrile and again feeling better. 6/3 Per nurse patient went into A. fib RVR last night up to 140's. Pt completely asymptomatic. Received several doses of IV Lopressor. no new complaints, has mild RUQ abd pain. Review of Systems: denies headache/fever/chills/nausea/vomiting/chest pain/cough/dyspnea. Otherwise see above. - Constitutional Vitals: Vital Signs Temp Pulse Resp BP Pulse Ox 99 F 108 H 20 108/64 96 08/14/19 03:37 08/14/19 03:37 08/14/19 03:37 08/14/19 03:37 08/14/19 03:37 Period Temp Pulse Resp BP Sys/Sanches Pulse Ox Last 24 Hr 98.2 F-100.7 F 62-125 18-22 97-129/54-73 92-96 Intake and Output 08/13/19 08/14/19 08/14/19 21:59 05:59 13:59 Intake Total 1010 50 Output Total 1625 1450 Balance -615 -1400 Weight 86.863 kg Intake & Output: Intake & Output 08/13/19 08/14/19 08/14/19 21:59 05:59 13:59 Intake Total 1010 50 Output Total 1625 1450 Balance -615 -1400 Weight 86.863 kg Intake: IV 650 50 Sodium Chloride 0.9% 1,000 ml @ 600 50 mls/hr IV .Q20H [facility] Rx#: [id number] Zosyn 3.375 gm In Dextrose 5% 50 50 in Water 50 ml @ 100 mls/hr IV Q6H [facility] Rx#:[id number] Oral 360 0 Output: Urine Catheter Amount 1625 1450 Other: Urine Appearance Clear Clear Urine Color Pale Bright Yellow Urine Odor Normal Stool Size Small Stool Color Brown Stool Consistency Liquid Loose # Bowel Movements 1 Exam: General: Alert, Awake, No acute Distress, obese Eyes/N/T: EOMI, Head/Neck: neck supple, CV: irreg irreg, No murmurs, Pulm: no rales today, no wheezing/rhonchi Abd: soft, TTP RUQ/Epigastrium, +BS x4 Ext: no clubbing/cyanosis/edema Neuro: Alert, no focal deficits, moves all extremities, Skin: warm/dry Medical - PN: Obj Da - Labs CBC & Chem 7: 08/14/19 04:56 08/14/19 04:56 Labs: Abnormal Lab Results 08/14/19 08/13/19 08/13/19 04:56 04:57 04:57 WBC 11.5 H 14.4 H MPV 11.9 H 11.8 H Gran % 84.9 H Lymph % (Auto) 9.2 L Gran # 8.44 H 12.22 H Lymph # (Auto) 1.32 L [place] # (Auto) 1.00 H VBG Lactic Acid Carbon Dioxide 19 L POC Total CO2 Anion Gap Glucose 134 H POC Glucose POC WB Ioniz Calcium GGT 101 H AST 107 H ALT 119 H Lactate Dehydrogenase 303 H NT-Pro-B Natriuret Pep 5846.0 H Ur Specific [place] Urine Protein Urine Glucose (UA) Urine Occult Blood Urine RBC 08/12/19 08/12/19 08/12/19 18:15 15:43 15:05 WBC MPV Gran % Lymph % (Auto) Gran # Lymph # (Auto) [place] # (Auto) VBG Lactic Acid 2.5 H Carbon Dioxide 18 L POC Total CO2 21 L Anion Gap 19.0 H Glucose 154 H POC Glucose 155 H POC WB Ioniz Calcium 1.11 L GGT AST 163 H ALT 135 H Lactate Dehydrogenase NT-Pro-B Natriuret Pep 3063.0 H Ur Specific [place] 1.047 H Urine Protein 30 A Urine Glucose (UA) 50 A Urine Occult Blood 0.2 A Urine RBC 6 H 08/12/19 15:05 WBC 12.7 H MPV 12.0 H Gran % 84.8 H Lymph % (Auto) 9.9 L Gran # 10.78 H Lymph # (Auto) 1.26 L [place] # (Auto) VBG Lactic Acid Carbon Dioxide POC Total CO2 Anion Gap Glucose POC Glucose POC WB Ioniz Calcium GGT AST ALT Lactate Dehydrogenase NT-Pro-B Natriuret Pep Ur Specific [place] Urine Protein Urine Glucose (UA) Urine Occult Blood Urine RBC Meds: Medications Sodium Chloride (Sodium Chloride 0.9%) 1,000 mls @ 50 mls/hr IV .Q20H [facility] Last Admin: 08/13/19 23:31 Dose: 50 mls/hr Documented by: Piperacillin Sod/Tazobactam (Sod 3.375 gm/ Dextrose) 50 mls @ 100 mls/hr IV Q6H [facility]; Protocol Last Admin: 08/14/19 05:12 Dose: 100 mls/hr Documented by: Acetaminophen (Ofirmev) 1,000 mg in 100 mls @ 200 mls/hr IV Q6HP PRN; Protocol PRN Reason: PAIN/FEVER > 101 Last Infusion: 08/13/19 13:55 Dose: Infused Documented by: Diltiazem HCl 125 mg/ Dextrose 125 mls @ 5 mls/hr IV PRN PRN; Protocol PRN Reason: Tachyarrhythmias Ondansetron HCl (Zofran) 4 mg IV Q6HP PRN PRN Reason: Nausea And Vomiting Sodium Chloride (Saline Flush) 10 ml IV Q8 [facility] Last Admin: 08/14/19 05:12 Dose: Not Given Documented by: Zolpidem Tartrate (Ambien) 5 mg PO HSP PRN PRN Reason: Insomnia Medical - PN: A/P - Time Spent With Patient Total time spent is greater than 50% in coordination of care (as documented) at patient's floor/unit and/or counseling patient: - Narrative A/P Narrative: A: *Acute Cholecystitis: -leukocytosis improving *Acute on likely chronic systolic/diastolic chronic CHF: -echo with EF 45-50%, basal segments hypokinetic, diastolic grade I dysfxn *Pleural effusions R>L: 2/2 abdominal process + CHF -on room air while awake *AFib rvr: asymptomatic, given the lack of symptoms this may be a paroxysmal case of unknown duration *HTN in ED: likely pain related, resolved *Obesity: *Transaminitis: 2/2 abdominal process *Depression: P: -Zosyn -Dr. Dupont for eventual cholecystectomy -BB, prn lopressor, discuss anticoagulation for after surgery, lasix -IS, monitor pulmonary status -may need thoracentesis if need supp oxygen? -f/u cxr in AM -Diet per Surgery - -ST or bedside swallow eval -cont SSRI -need f/u with cardiology -ppx: SCD to heparin if no surgery today DNR Medical - PN: Qual - Stroke Symptom Onset Unknown: No - VTE Deep Vein Thrombosis/Pulmonary Embolism Present on Admission: No
[2019-08-14] MEDS ORDERED: POTASSIUM CHLORIDE 20 MEQ TABLET PO ONE ×2 (07:10→17:32)
[2019-08-14] MEDS ORDERED: METOPROLOL TARTRATE 25 MG TABLET PO SCH (09:00)
[2019-08-14] MEDS ORDERED: POTASSIUM CHLORIDE 40 MEQ in DEXTROSE 5% IN WATER 500 ML IV ONE (09:52)
[2019-08-14] MEDS: 0.9 % SODIUM CHLORIDE 1,000 ML IV SCH (09:58)
[2019-08-14] MEDS ORDERED: GLYCOPYRROLATE 0.2 MG/ML VIAL IV ONE (11:41)
[2019-08-14] MEDS ORDERED: KETAMINE 100 MG/ML ML IV ONE (11:41)
[2019-08-14] MEDS ORDERED: ONDANSETRON 4 MG/2 ML VIAL IV ONE (11:41)
[2019-08-14] MEDS ORDERED: PHENYLEPHRINE 10 MG/ML VIAL IV ONE (11:41)
[2019-08-14] MEDS ORDERED: ROCURONIUM 10 MG/ML ML IV ONE (11:41)
[2019-08-14] MEDS ORDERED: LIDOCAINE HCL/PF 100 MG/5 ML SYRINGE IV ONE (11:41)
[2019-08-14] MEDS ORDERED: PROPOFOL 200 MG/20 ML VIAL IV ONE (11:41)
[2019-08-14] MEDS ORDERED: DEXAMETHASONE 10 MG/ML VIAL IV ONE (11:41)
[2019-08-14] MEDS ORDERED: fentaNYL 250 MCG/5 ML VIAL IV ONE (11:41)
[2019-08-14] MEDS ORDERED: SUGAMMADEX SODIUM 200 MG/2 ML VIAL IV ONE (11:41)
--- NOTE | 2019-08-14 12:58 | Brief Operative Note ---
Date of procedure: 08/14/19 Pre-op diagnosis: acute cholelithiasis with cholecystitis Post-op diagnosis: other (acute gangrenous cholecystitis with cholelithiasis) Procedure: laparoscopic cholecystectomy Grafts/Implants: No (madi drain x1) Anesthesia: GETA Findings: acute severe inflammation of gallbladder with wall necrosis and multiple gallstones Complications: none Surgeon: Lorene Dupont Estimated blood loss (cc): 20 Specimens Removed/Pathology: other (gallbladder) Condition: stable Disposition: PACU
[2019-08-14] MEDS ORDERED: 0.9 % SODIUM CHLORIDE 1,000 ML IV SCH (13:13)
[2019-08-14] MEDS ORDERED: DILTIAZEM 125 MG in DEXTROSE 5% IN WATER 100 ML IV PRN (13:13)
[2019-08-14] MEDS ORDERED: ZOLPIDEM 5 MG TABLET PO PRN (13:13)
[2019-08-14] MEDS ORDERED: ONDANSETRON 4 MG/2 ML VIAL IV PRN (13:13)
[2019-08-14] MEDS ORDERED: FLUMAZENIL 0.1 MG/ML ML IV PRN (13:19)
[2019-08-14] MEDS ORDERED: METOPROLOL TARTRATE 5 MG/5 ML VIAL IV PRN (13:19)
[2019-08-14] MEDS ORDERED: LABETALOL 5 MG/ML ML IV PRN (13:19)
[2019-08-14] MEDS ORDERED: LACTATED RINGERS 250 ML IV PRN (13:19)
[2019-08-14] MEDS ORDERED: IPRATROPIUM/ALBUTEROL 3 ML AMPUL.NEB NEB PRN (13:19)
[2019-08-14] MEDS ORDERED: METHOCARBAMOL 1,000 MG/10 ML VIAL IV PRN (13:19)
[2019-08-14] MEDS ORDERED: fentaNYL 100 MCG/2 ML VIAL IV PRN (13:19)
[2019-08-14] MEDS ORDERED: ACETAMINOPHEN 1,000 MG/100 ML BOTTLE IV ONE (13:19)
[2019-08-14] MEDS ORDERED: NALOXONE HCL 0.4 MG/ML VIAL IV PRN (13:19)
[2019-08-14] MEDS ORDERED: METHOCARBAMOL 1,000 MG/10 ML VIAL ONE (13:52)
[2019-08-14] MEDS: LACTATED RINGERS 1,000 ML IV SCH ×2 (13:53→14:14)
[2019-08-14] MEDS ORDERED: FUROSEMIDE 40 MG/4 ML VIAL IV ONE ×2 (17:30→17:47)
[2019-08-14] MEDS: POTASSIUM CHLORIDE 20 MEQ TABLET PO SCH (17:53)
[2019-08-14] MEDS: METOPROLOL TARTRATE 25 MG TABLET PO SCH (20:59)
[2019-08-15] MEDS: ACETAMINOPHEN 1,000 MG/100 ML BOTTLE IV PRN ×4 (00:16→21:59)
[2019-08-15] MEDS: PIPERACILLIN SODIUM/TAZOBACTAM 3.375 GM in DEXTROSE 5% IN WATER 50 ML IV SCH ×4 (05:21→23:32)
[2019-08-15] MEDS: 0.9 % SODIUM CHLORIDE 10 ML SYRINGE IV SCH ×3 (05:22→21:59)
[2019-08-15 06:48] LABS: Basophils # (Auto) 0.01 K/mcL (0.00-0.30); Basophils % (Auto) 0.1 % (0.0-2.0); Eosinophils # (Auto) 0 K/mcL (0.00-0.70); Eosinophils % (Auto) 0 % (0.0-7.0); Granulocytes % (Auto) 82.1 % (38.0-78.0); Hematocrit 36.5 % (34.1-44.9); Hemoglobin 11.6 g/dL (11.2-15.7); Lymphocytes # (Auto) 1.11 K/mcL (1.50-4.80); Mean Cell Volume 99.2 fL (80.0-100.0); Mean Corpuscular HGB Conc 31.8 g/dL (31.0-36.0); Mean Platelet Volume 11.9 fL (7.4-10.4); Monocytes # (Auto) 0.87 K/mcL (0.10-0.90); Monocytes % (Auto) 7.8 % (1.0-12.0); Platelet Count 186 K/mcL (140-440); RBC 3.68 M/mcL (3.59-5.38); Red Cell Distribution Width 13.4 % (11.5-14.5); WBC 11.1 K/mcL (4.50-11.00)
[2019-08-15 07:04] LABS: Chloride 105 mmol/L (96-108)
[2019-08-15 07:05] LABS: ALT/SGPT 88 U/l (0-40); AST/SGOT 58 U/l (0-37); Alkaline Phosphatase 79 U/L (39-117); Bilirubin,Direct 0.2 mg/dL (0.0-0.3); Bilirubin,Total 0.6 mg/dL (0.0-1.0); Blood Urea Nitrogen 11 mg/dl (8-23); Calcium 8.2 mg/dl (8.6-10.4); Carbon Dioxide 21 mmol/L (22-30); Globulin 2.9 gm/dL (2.2-3.7); Glomerular Filtration Rate 63; Glucose 140 mg/dL (70-105); Lactate Dehydrogenase 238 U/L (94-250); Phosphorous 2.8 mg/dL (2.7-4.5); Triglycerides 153 mg/dl (<150); Uric Acid 3.4 mg/dL (2.5-8.0)
--- NOTE | 2019-08-15 07:12 | XRay Report ---
CLINICAL INFORMATION: f/u chf and effusion COMPARISON: 08/12/2019 FINDINGS: Mild cardiomegaly is decreased. Mediastinum and pulmonary vessels are normal. Right middle and lower lobe infiltrates have improved considerably with small patchy residual. A new moderate left lower lobe infiltrate and effusion have developed. IMPRESSION: Marked improvement in right middle/lower lobe infiltrate with all patchy residual. Small right pleural effusion New moderate posterior left lower lobe infiltrate and effusion. Cardiomegaly no evidence of CHF Interpreted and Authenticated by: Jimmie Garcia 08/15/19
[2019-08-15] MEDS ORDERED: FUROSEMIDE 40 MG/4 ML VIAL IV ONE (07:18)
[2019-08-15] MEDS ORDERED: ALBUMIN HUMAN 12.5 GM/50 ML BAG IV ONE (07:18)
--- NOTE | 2019-08-15 07:19 | Internal Med Progress Note ---
Medical - PN: Subj Patient information: Note initiated : 08/15/19 at 7:11 am Service Date, if different from initiated Date: [] Patient: Linda Dominguez a 73 y/o F admitted on 08/12/19 for Abd Pain w/SOB. Chief Complaint: [] Interval history: Ms. Dominguez is a 73 year old F Presents the ED with complaints of nausea vomiting and severe abdominal pain with some shortness of breath last night. Went to minor care for abdominal distention and shortness of breath. No cough, no fever or chills. Patient reports she went to bed feeling relatively well, feeling a little bloated. Woke up at 1 AM with nausea vomiting multiple episodes she also had several episodes of diarrhea. She also had shortness of breath at that time. She describes the pain as diffuse but worse in the upper abdomen and describes an achy pain. As of breath is improved. Pain better improved with pain medications. Imaging was done which was concerning for possible duodenal ulcer perforation versus more gallbladder related. Gallbladder notably distended on imaging. Dr. Dupont was contacted. Denies any fevers or chills she has no cough. Oxygen saturation 91 to 96% on room air, the imaging concerning for some fibrosis. No recent illnesses. No history of heart failure or pulmonary disease or gallbladder issues. Work-up in the ED showed a mild leukocytosis and a mild elevated lactate. Elevated proBNP and liver enzymes. CT abdomen pelvis showed lung bases with interstitial disease presumably fibrosis as well as intraperitoneal fluid in the periduodenal region concerning for possible duodenal perforation. 6/2 Feeling little better this morning. Was able to sleep last night. Abdominal pain still present but controlled with pain medication. Sitting up in chair on room air. Leukocytosis mildly worse but afebrile and again feeling better. 6/3 Per nurse patient went into A. fib RVR last night up to 140's. Pt completely asymptomatic. Received several doses of IV Lopressor. no new complaints, has mild RUQ abd pain. post-op patient is in sinus rhythm. Discussed the case with [facility] cardiology who recommended diuretic and continue beta burak. Order Zio patch through outpt cardiology services, and f/u with cardiology, hold off on anticoagulation for now. Reviewed the information that I discussed with the tan room supervisor with the patient. She was in agreement even after I discussed stroke risk. She would like to avoid any anticoagulation if possible at this time and would like to follow-up with cardiology before she started up any anticoagulation if necessary. She will continue to take her aspirin 81mg that shes takes as a precautionary measure that was prescribed by her PCP in the past. / Tolerating full liquid diet. No chest pain shortness of breath or complaints or coughing. A little bit of abdominal discomfort over the incision site but otherwise no other issues. Status post laparoscopic cholecystectomy yesterday. Rhythm is sinus with occasional PVC. Review of Systems: denies headache/fever/chills/nausea/vomiting/chest pain/cough/dyspnea. Otherwi se see above. - Constitutional Vitals: Vital Signs Temp Pulse Resp BP Pulse Ox 97.9 F 56 L 20 111/51 96 08/15/19 03:20 08/15/19 03:20 08/15/19 03:20 08/15/19 03:20 08/15/19 03:20 Period Temp Pulse Resp BP Sys/Sanches Pulse Ox Last 24 Hr 97.2 F-98.8 F 56-111 13-24 91-141/43-73 90-97 Intake and Output 08/14/19 08/15/19 08/15/19 21:59 05:59 13:59 Intake Total 1717 410 Output Total 2280 490 Balance -563 -80 Weight 89.131 kg Intake & Output: Intake & Output 08/14/19 08/15/19 08/15/19 21:59 05:59 13:59 Intake Total 1717 410 Output Total 2280 490 Balance -563 -80 Weight 89.131 kg Intake: IV 1057 50 Lactated Ringers 1,000 ml @ 20 1007 mls/hr IV .Q24H [facility] Rx#: [id number] Zosyn 3.375 gm In Dextrose 5% 50 50 in Water 50 ml @ 100 mls/hr IV Q6H [facility] Rx#:[id number] Oral 460 360 IV - Manual Only 200 Output: Drainage 30 40 Abdomen 30 40 Drainage 100 Abdomen 100 Urine Catheter Amount 2150 450 Other: Meal Dinner Percent of Meal Consumed 75% Feeding Ability Independent Urine Appearance Clear Clear Uretheral (Patricio) Clear Urine Color Pale Pale Uretheral (Patricio) Bright Yellow Urine Odor Normal Stool Size Small Stool Color Brown Stool Consistency Loose Exam: General: Alert, Awake, No acute Distress, obese Eyes/N/T: EOMI, Head/Neck: neck supple, CV: Regular with occasional ectopic, telemetry with sinus and occasional PVC, No murmurs, Pulm: minimal rales left base, no wheezing/rhonchi Abd: soft, mild TTP RUQ/Epigastrium, +BS x4 Ext: no clubbing/cyanosis/edema Neuro: Alert, no focal deficits, moves all extremities, Skin: warm/dry Medical - PN: Obj Da - Labs CBC & Chem 7: 08/15/19 05:06 08/15/19 05:06 Labs: Abnormal Lab Results 08/15/19 08/15/19 08/14/19 05:06 05:06 04:56 WBC 11.1 H MPV 11.9 H Gran % 82.1 H Lymph % (Auto) 10.0 L Gran # 9.11 H Lymph # (Auto) 1.11 L Lyon # (Auto) VBG Lactic Acid Potassium 3.2 L Carbon Dioxide 21 L POC Total CO2 Anion Gap Glucose 140 H 116 H POC Glucose Calcium 8.2 L 8.4 L POC WB Ioniz Calcium Phosphorus 2.3 L GGT 96 H 93 H AST 58 H 60 H ALT 88 H 97 H Lactate Dehydrogenase NT-Pro-B Natriuret Pep 5289.0 H Albumin 3.0 L Triglycerides 153 H Ur Specific Russell Urine Protein Urine Glucose (UA) Urine Occult Blood Urine RBC 08/14/19 08/13/19 08/13/19 04:56 04:57 04:57 WBC 11.5 H 14.4 H MPV 11.9 H 11.8 H Gran % 84.9 H Lymph % (Auto) 9.2 L Gran # 8.44 H 12.22 H Lymph # (Auto) 1.32 L [place] # (Auto) 1.00 H VBG Lactic Acid Potassium Carbon Dioxide 19 L POC Total CO2 Anion Gap Glucose 134 H POC Glucose Calcium POC WB Ioniz Calcium Phosphorus GGT 101 H AST 107 H ALT 119 H Lactate Dehydrogenase 303 H NT-Pro-B Natriuret Pep 5846.0 H Albumin Triglycerides Ur Specific Russell Urine Protein Urine Glucose (UA) Urine Occult Blood Urine RBC 08/12/19 08/12/19 08/12/19 18:15 15:43 15:05 WBC MPV Gran % Lymph % (Auto) Gran # Lymph # (Auto) Lyon # (Auto) VBG Lactic Acid 2.5 H Potassium Carbon Dioxide 18 L POC Total CO2 21 L Anion Gap 19.0 H Glucose 154 H POC Glucose 155 H Calcium POC WB Ioniz Calcium 1.11 L Phosphorus GGT AST 163 H ALT 135 H Lactate Dehydrogenase NT-Pro-B Natriuret Pep 3063.0 H Albumin Triglycerides Ur Specific Russell 1.047 H Urine Protein 30 A Urine Glucose (UA) 50 A Urine Occult Blood 0.2 A Urine RBC 6 H 08/12/19 15:05 WBC 12.7 H MPV 12.0 H Gran % 84.8 H Lymph % (Auto) 9.9 L Gran # 10.78 H Lymph # (Auto) 1.26 L [place] # (Auto) VBG Lactic Acid Potassium Carbon Dioxide POC Total CO2 Anion Gap Glucose POC Glucose Calcium POC WB Ioniz Calcium Phosphorus GGT AST ALT Lactate Dehydrogenase NT-Pro-B Natriuret Pep Albumin Triglycerides Ur Specific Russell Urine Protein Urine Glucose (UA) Urine Occult Blood Urine RBC Meds: Medications Enoxaparin Sodium (Lovenox) 40 mg SQ DAILY [facility] Furosemide (Lasix) 60 mg IV BIDD [facility] Diltiazem HCl 125 mg/ Dextrose 125 mls @ 5 mls/hr IV PRN PRN; Protocol PRN Reason: Tachyarrhythmias Sodium Chloride (Sodium Chloride 0.9%) 1,000 mls @ 50 mls/hr IV .Q20H [facility] Last Admin: 08/14/19 14:49 Dose: 50 mls/hr Documented by: Acetaminophen (Ofirmev) 1,000 mg in 100 mls @ 200 mls/hr IV Q6HP PRN; Protocol PRN Reason: PAIN/FEVER > 101 Last Admin: 08/15/19 00:16 Dose: 200 mls/hr Documented by: Piperacillin Sod/Tazobactam (Sod 3.375 gm/ Dextrose) 50 mls @ 100 mls/hr IV Q6H [facility]; Protocol Last Admin: 08/15/19 05:21 Dose: 100 mls/hr Documented by: Metoprolol Tartrate (Lopressor) 12.5 mg PO BID [facility] Last Admin: 08/14/19 20:59 Dose: 12.5 mg Documented by: Ondansetron HCl (Zofran) 4 mg IV Q6HP PRN PRN Reason: Nausea And Vomiting Potassium Chloride (Kdur) 20 meq PO BIDCC [facility] Last Admin: 08/14/19 17:53 Dose: 20 meq Documented by: Sodium Chloride (Saline Flush) 10 ml IV Q8 [facility] Last Admin: 08/15/19 05:22 Dose: Not Given Documented by: Zolpidem Tartrate (Ambien) 5 mg PO HSP PRN PRN Reason: Insomnia Medical - PN: A/P - Time Spent With Patient Total time spent is greater than 50% in coordination of care (as documented) at patient's floor/unit and/or counseling patient: - Narrative A/P Narrative: A: *Acute Cholecystitis: s/p Lap carol (08/13) -leukocytosis improving *Acute on likely chronic systolic/diastolic chronic CHF: -echo with EF 45-50%, basal segments hypokinetic, diastolic grade I dysfxn *Pleural effusions b/l: 2/2 abdominal process + CHF -on room air while awake *AFib rvr: asymptomatic, given the lack of symptoms this may be a paroxysmal case of unknown duration -NSR post-op *Obesity: *Transaminitis: 2/2 abdominal process *Depression: P: -Zosyn -Dr. Dupont on case -BB, Diuretic -Discussed the case with [facility] cardiology who recommended diuretic and continue beta burak. Order Zio patch through outpt cardiology services, and f/u with cardiology, hold off on anticoagulation for now -will need Zio Patch -IS, monitor pulmonary status -may need thoracentesis if need supp oxygen? -Diet per Surgery - -cont SSRI -f/u with cardiology -ppx: lovenox DNR Medical - PN: Qual - Stroke Symptom Onset Unknown: No - VTE Deep Vein Thrombosis/Pulmonary Embolism Present on Admission: No
[2019-08-15] MEDS ORDERED: FUROSEMIDE 40 MG/4 ML VIAL IV SCH (08:00)
[2019-08-15] MEDS: METOPROLOL TARTRATE 25 MG TABLET PO SCH ×2 (08:11→20:51)
[2019-08-15] MEDS: POTASSIUM CHLORIDE 20 MEQ TABLET PO SCH ×2 (08:12→17:52)
[2019-08-15] MEDS: ENOXAPARIN 40 MG/0.4 ML SYRINGE SQ SCH (08:12)
--- NOTE | 2019-08-15 11:47 | Surgical Pathology Report ---
HISTOLOGY SPECIMEN MICROSCOPIC DIAGNOSIS GALLBLADDER, CHOLECYSTECTOMY: -- ACUTE AND CHRONIC CHOLECYSTITIS. -- CHOLELITHIASIS. -- ONE PERICYSTIC LYMPH NODE WITH REACTIVE LYMPHOID HYPERPLASIA. (DMT:sln) PROCEDURAL IMPRESSION Acute gangrenous cholecystitis with cholelithiasis. GROSS DESCRIPTION Received in formalin labeled gallbladder, is a disrupted purple-richards gallbladder that measures 10.9 x 5.2 x 1.4 cm. The specimen contains multiple stones from 0.2 to 1.1 cm. The possible duct has a 1 cm stapled margin. The mucosa is purple-burns with areas of variegated green throughout. The wall is up to 0.3 cm thick. Med Peds sections submitted in one cassette. (SCB:sln) Electronically Signed by: Javed Patel M.D.
--- NOTE | 2019-08-15 16:28 | General Surgery Progress Note ---
Subjective Patient reports: feels better, pain is less, tolerating liquids well, flatus, afebrile Narrative: Note initiated : 08/15/19 at 4:25 pm Service Date, if different from initiated Date: [] Patient: Linda Dominguez 73 y/o F admitted on 08/12/19 for Abd Pain w/SOB. Chief Complaint: [] Objective Temp Pulse Resp BP Pulse Ox 98.5 F 52 L 16 116/63 95 08/15/19 15:28 08/15/19 15:28 08/15/19 15:28 08/15/19 15:28 08/15/19 15:28 - Additional Data Intake & Output - Last 24 hours: Intake & Output 08/13/19 08/14/19 08/15/19 08/16/19 05:59 05:59 05:59 05:59 Intake Total 100 1310 3827 490 Output Total 3075 3410 440 Balance 100 -1765 417 50 Weight 193 lb 8 oz 191 lb 8 oz 196 lb 8 oz - General physical appearance well developed, well nourished, no distress - Eyes PERRL, normal ocular movement - ENT normal pinna, normal nares, normal mucosa, no hearing loss, no congestion - Neck no masses, no bruits, trachea midline, no lymphadenopathy, no venous distension - Respiratory normal expansion, normal respiratory effort, clear to auscultation - Cardiovascular Cardiovascular exam: Present: normal rate and rhythm, RRR, +S1, +S2. Absent: JVD, tachycardia - Abdomen tender (mild tenderness around port sites), bowel sounds (present), surgical scars (none), masses (none) - Integumentary no rash, no growths, no abnormal pigmentation - Neurologic normal coordination, normal sensation - Musculoskeletal normal gait, normal posture - Psychiatric oriented to time, oriented to person, oriented to place, speech is normal, memory intact - Labs 08/15/19 05:06 08/15/19 05:06 Diabetes panel 08/15/19 Range/Units 05:06 Sodium 140 (133-145) mmol/L Potassium 3.7 (3.3-5.1) mmol/L Chloride 105 (96-108) mmol/L Carbon Dioxide 21 L (22-30) mmol/L BUN 11 (8-23) mg/dl Creatinine 0.9 (0.6-1.1) mg/dl Glucose 140 H (70-105) mg/dL Calcium 8.2 L (8.6-10.4) mg/dl AST 58 H (0-37) U/l ALT 88 H (0-40) U/l Alkaline Phosphatase 79 (39-117) U/L Total Protein 5.9 (5.9-8.4) gm/dL Albumin 3.0 L (3.2-5.2) gm/dL Triglycerides 153 H (<150) mg/dl Thyroid panel 08/14/19 Range/Units 04:56 TSH 0.90 (0.27-5.01) uIU/ml Calcium panel 08/15/19 Range/Units 05:06 Calcium 8.2 L (8.6-10.4) mg/dl Phosphorus 2.8 (2.7-4.5) mg/dL Albumin 3.0 L (3.2-5.2) gm/dL Pituitary panel 08/14/19 08/15/19 Range/Units 04:56 05:06 Sodium 140 (133-145) mmol/L Potassium 3.7 (3.3-5.1) mmol/L Chloride 105 (96-108) mmol/L Carbon Dioxide 21 L (22-30) mmol/L BUN 11 (8-23) mg/dl Creatinine 0.9 (0.6-1.1) mg/dl Glucose 140 H (70-105) mg/dL Calcium 8.2 L (8.6-10.4) mg/dl TSH 0.90 (0.27-5.01) uIU/ml Adrenal panel 08/15/19 Range/Units 05:06 Sodium 140 (133-145) mmol/L Potassium 3.7 (3.3-5.1) mmol/L Chloride 105 (96-108) mmol/L Carbon Dioxide 21 L (22-30) mmol/L BUN 11 (8-23) mg/dl Creatinine 0.9 (0.6-1.1) mg/dl Glucose 140 H (70-105) mg/dL Calcium 8.2 L (8.6-10.4) mg/dl Total Bilirubin 0.6 (0.0-1.0) mg/dL AST 58 H (0-37) U/l ALT 88 H (0-40) U/l Alkaline Phosphatase 79 (39-117) U/L Total Protein 5.9 (5.9-8.4) gm/dL Albumin 3.0 L (3.2-5.2) gm/dL Assessment and Plan (1) Right upper quadrant abdominal pain with positive Carr's Sign Status: Acute Assessment and plan: Patient is doing well status post laparoscopic cholecystectomy. She is relatively asymptomatic Advanced to soft diet Current Visit: Yes (2) Nausea and vomiting Status: Resolved Assessment and plan: Clinically improved Current Visit: Yes (3) Infiltrate of lower lobe of right lung present on imaging study Status: Acute Current Visit: Yes (4) Supraventricular tachycardia, paroxysmal Status: Acute Assessment and plan: Heart rate is in the 60s and primarily sinus rhythm with occasional sinus arrhythmia Current Visit: Yes - Time Spent With Patient Total time spent is greater than 50% in coordination of care (as documented) at patient's floor/unit and/or counseling patient:
--- NOTE | 2019-08-15 16:42 | Discharge Summary ---
Medical - DS: Prov Patient information: Note initiated : 08/15/19 at 4:39 pm Service Date, if different from initiated Date: [] Patient: Linda Dominguez 73 y/o F admitted on 08/12/19 for Abd Pain w/SOB. Chief Complaint: [] Date of admission: 08/12/19 19:46 Discharge date: 08/16/19 Primary care physician: Angelique Mattson Consults: 08/12/19 Consult to Physician [CONS] Stat Comment: Consulting Provider: Kirk Kendrick Reason For Exam: Physician to Consult Consult to Physician [CONS] Stat Comment: Consulting Provider: Lorene Dupont Reason For Exam: Physician to Consult Medical - DS: Meds - Discharge Medications Prescriptions: Aspirin 81 mg PO DAILY #30 tab.chew Transmission Status: Pending to [email or web address] Amoxicillin/Potassium Clav [Augmentin] 875 mg PO BIDCC #4 tab Transmission Status: Pending to [email or web address] Lactobacillus [Culturelle] 1 cap PO BID #60 cap Transmission Status: Pending to [email or web address] Furosemide [Lasix] 20 mg PO DAILY #30 tab Transmission Status: Pending to [email or web address] Metoprolol Succinate [Toprol Xl] 12.5 mg PO DAILY #30 tab.xl.24h Transmission Status: Pending to [email or web address] Acetaminophen W/Codeine #3 [Tylenol #3] 1 tab PO Q4HP PRN #20 tab PRN Reason: Pain Transmission Status: Received by [email or web address] Active and Home Medications: Home Medications escitalopram oxalate 10 mg tablet 10 mg PO QHS tab 04/26/19 [History Confirmed 08/12/19 Last Taken 08/10/19 20:00] Aspirin 81 mg PO DAILY Home Medications escitalopram oxalate 10 mg tablet 10 mg PO QHS tab 04/26/19 [History Confirmed 08/12/19 Last Taken 08/10/19 20:00] Aspirin 81 mg PO DAILY #30 tab.chew 08/15/19 [Rx Last Taken Unknown] Furosemide [Lasix] 20 mg PO DAILY #30 tab 08/15/19 [Rx Last Taken Unknown] Acetaminophen W/Codeine #3 [Tylenol #3] 1 tab PO Q4HP PRN #20 tab 08/16/19 [Rx Last Taken Unknown] Amoxicillin/Potassium Clav [Augmentin] 875 mg PO BIDCC #4 tab 08/16/19 [Rx Last Taken Unknown] Lactobacillus [Culturelle] 1 cap PO BID #60 cap 08/16/19 [Rx Last Taken Unknown] Metoprolol Succinate [Toprol Xl] 12.5 mg PO DAILY #30 tab.xl.24h 08/16/19 [Rx Last Taken Unknown] Medical - DS: Hosp Hospital Course: Ms. Dominguez is a 73 year old F Presents the ED with complaints of nausea vomiting and severe abdominal pain with some shortness of breath last night. Went to minor care for abdominal distention and shortness of breath. No cough, no fever or chills. Patient reports she went to bed feeling relatively well, feeling a little bloated. Woke up at 1 AM with nausea vomiting multiple episodes she also had several episodes of diarrhea. She also had shortness of breath at that time. She describes the pain as diffuse but worse in the upper abdomen and describes an achy pain. As of breath is improved. Pain better improved with pain medications. Imaging was done which was concerning for possible duodenal ulcer perforation versus more gallbladder related. Gallbladder notably distended on imaging. Dr. Dupont was contacted. Denies any fevers or chills she has no cough. Oxygen saturation 91 to 96% on room air, the imaging concerning for some fibrosis. No recent illnesses. No history of heart failure or pulmonary disease or gallbladder issues. Work-up in the ED showed a mild leukocytosis and a mild elevated lactate. Elevated proBNP and liver enzymes. CT abdomen pelvis showed lung bases with interstitial disease presumably fibrosis as well as intraperitoneal fluid in the periduodenal region concerning for possible duodenal perforation. 6/2 Feeling little better this morning. Was able to sleep last night. Abdominal pa in still present but controlled with pain medication. Sitting up in chair on room air. Leukocytosis mildly worse but afebrile and again feeling better. 6/3 Per nurse patient went into A. fib RVR last night up to 140's. Pt completely asymptomatic. Received several doses of IV Lopressor. no new complaints, has mild RUQ abd pain. post-op patient is in sinus rhythm. Discussed the case with [facility] cardiology who recommended diuretic and continue beta burak. Order Zio patch through outpt cardiology services, and f/u with cardiology, hold off on anticoagulation for now. Reviewed the information that I discussed with the merchandise examiner with the patient. She was in agreement even after I discussed stroke risk. She would like to avoid any anticoagulation if possible at this time and would like to follow-up with cardiology before she started up any anticoagulation if necessary. She will continue to take her aspirin 81mg that shes takes as a precautionary measure that was prescribed by her PCP in the past. 6/4 Tolerating full liquid diet. No chest pain shortness of breath or complaints or coughing. A little bit of abdominal discomfort over the incision site but otherwise no other issues. Status post laparoscopic cholecystectomy yesterday. Rhythm is sinus with occasional PVC. 6/5 Poor sleep last night. But no other complaints. Tolerating GI soft diet. Heart rate sinus rhythm. ABG in place. Heart rate 50 at time. Will decrease metoprolol. If unable to get a ZIO patch will discharge with Holter monitor. She will follow-up with cardiology A: *Acute Cholecystitis: s/p Lap carol (08/13) *Acute on likely chronic systolic/diastolic chronic CHF: -echo with EF 45-50%, basal segments hypokinetic, diastolic grade I dysfxn *Pleural effusions b/l: 2/2 abdominal process + CHF, improved *AFib rvr isolated and converted on own *Obesity: *Transaminitis: 2/2 abdominal process *Depression: Discharge diagnosis: Acute cholecystitis systolic and diastolic heart failure obesity depression Secondary discharge diagnosis: Isolated A. fib RVR event - Time Spent with Patient Total time spent providing and/or coordinating discharge services: Greater than 30 minutes Medical - DS: Exam - Constitutional Vitals: Vital Signs Temp Pulse Resp BP Pulse Ox 08/15/19 15:28 98.5 F 52 L 16 116/63 95 08/15/19 11:30 98.4 F 66 18 128/60 95 08/15/19 07:31 97.3 F 60 16 120/54 96 08/15/19 03:20 97.9 F 56 L 20 111/51 96 08/15/19 01:45 92 08/15/19 01:15 92 08/14/19 23:35 98.8 F 67 20 116/64 93 08/14/19 18:40 98.7 F 63 24 H 127/62 96 08/14/19 17:45 97.5 F 66 16 131/71 93 08/14/19 16:45 57 L 16 131/67 94 Intake and Output 08/15/19 08/15/19 08/15/19 05:59 13:59 21:59 Intake Total 510 340 150 Output Total 490 440 Balance 20 340 -290 Intake: IV 150 100 150 Zosyn 3.375 gm In Dextrose 5% 50 50 50 in Water 50 ml @ 100 mls/hr IV Q6H [facility] Rx#:[id number] Oral 360 240 Output: Drainage 40 Abdomen 40 Drainage 40 Abdomen 40 Urine Catheter Amount 450 400 Other: Meal Breakfast Percent of Meal Consumed 100% Urine Appearance Clear Clear Urine Color Pale Bright Yellow Urine Odor Normal Stool Size Small Small Stool Color Brown Stool Consistency Loose Liquid Medical - DS: Data Labs on day of discharge: Labs from last 24 hours 08/15/19 08/15/19 08/14/19 05:06 05:06 04:56 WBC 11.1 H RBC 3.68 Hgb 11.6 Hct 36.5 MCV 99.2 MCH 31.5 MCHC 31.8 RDW 13.4 Plt Count 186 MPV 11.9 H Gran % 82.1 H Lymph % (Auto) 10.0 L [place] % (Auto) 7.8 Eos % (Auto) 0 Baso % (Auto) 0.1 Gran # 9.11 H Lymph # (Auto) 1.11 L [place] # (Auto) 0.87 Eos # (Auto) 0 Baso # (Auto) 0.01 Sodium 140 Potassium 3.7 Chloride 105 Carbon Dioxide 21 L Anion Gap 14.0 BUN 11 Creatinine 0.9 GFR Calculation 63 Glucose 140 H Uric Acid 3.4 Calcium 8.2 L Phosphorus 2.8 Magnesium 1.9 Total Bilirubin 0.6 Direct Bilirubin 0.2 GGT 96 H AST 58 H ALT 88 H Alkaline Phosphatase 79 Lactate Dehydrogenase 238 Total Protein 5.9 Albumin 3.0 L Globulin 2.9 Albumin/Globulin Ratio 1.0 Triglycerides 153 H TSH 0.90 Preliminary micro results at discharge 08/12/19 16:00 Blood Culture - Preliminary Blood 08/12/19 15:43 Blood Culture - Preliminary Blood Medical - DS: A/P - Patient/Caregiver Discharge Instructions Activity: as per physical therapy Diet: Regular Diet Additional Instructions: Referral to see cardiology in 7-[address] Schafer at [facility] ([phone]) at [address] [place] [address]. Please call Monday and schedule an appointment. Patient needs Zio Patch to wear and then will f/u with cardiology. Increase activity as tolerated. Regular diet as tolerated. Prescriptions: Aspirin 81 mg PO DAILY #30 tab.chew Furosemide [Lasix] 20 mg PO DAILY #30 tab Metoprolol Succinate [Toprol Xl] 25 mg PO DAILY #30 tab.xl.24h Acetaminophen W/Codeine #3 [Tylenol #3] 1 tab PO Q4HP PRN #20 tab PRN Reason: Pain Transmission Status: Received by [email or web address] - Follow up Plan Follow up with: Angelique Mattson ARNP [Primary Care Provider] - 08/23/19 12:00 pm (This appointment is with Carly Dupont.) Lorene Dupont MD [Physician] - 09/02/19 9:30 am Disposition: Home, Self-Care Care Plan Goals: This discharge packet is provided to you to help keep you informed about your care. We want to ensure you get everything you need when you go home. You will also be receiving a call from us in a few days to follow up with you and see how you are doing since your discharge. This gives us a chance to listen to any concerns you maybe experiencing since you were discharged or any additional needs you may have, as well as providing us feedback on your care experience. We strive to always provide excellent care and thank you for your feedback and for choosing [facility]. Prognosis: Fair Rehab Potential: Fair Overall status at discharge: patient is progressing back to baseline Medical - DS: Qual - VTE Deep Vein Thrombosis/Pulmonary Embolism Present on Admission: No
[2019-08-16] MEDS: ACETAMINOPHEN 1,000 MG/100 ML BOTTLE IV PRN ×2 (04:03→12:47)
[2019-08-16] MEDS: 0.9 % SODIUM CHLORIDE 10 ML SYRINGE IV SCH ×3 (05:53→16:29)
[2019-08-16] MEDS: PIPERACILLIN SODIUM/TAZOBACTAM 3.375 GM in DEXTROSE 5% IN WATER 50 ML IV SCH (05:53)
[2019-08-16 06:56] LABS: Basophils # (Auto) 0.03 K/mcL (0.00-0.30); Basophils % (Auto) 0.4 % (0.0-2.0); Eosinophils # (Auto) 0.05 K/mcL (0.00-0.70); Eosinophils % (Auto) 0.7 % (0.0-7.0); Hematocrit 35.6 % (34.1-44.9); Hemoglobin 11.4 g/dL (11.2-15.7); Lymphocytes % (Auto) 36.6 % (15.5-49.0); Mean Cell Volume 97.5 fL (80.0-100.0); Monocytes # (Auto) 0.61 K/mcL (0.10-0.90); Monocytes % (Auto) 8.3 % (1.0-12.0); Platelet Count 188 K/mcL (140-440); RBC 3.65 M/mcL (3.59-5.38); Red Cell Distribution Width 13.5 % (11.5-14.5); WBC 7.4 K/mcL (4.50-11.00)
--- NOTE | 2019-08-16 07:07 | Internal Med Progress Note ---
Medical - PN: Subj Patient information: Note initiated : 08/16/19 at 7:04 am Service Date, if different from initiated Date: [] Patient: Linda Dominguez a 73 y/o F admitted on 08/12/19 for Abd Pain w/SOB. Chief Complaint: [] Interval history: Ms. Dominguez is a 73 year old F Presents the ED with complaints of nausea vomiting and severe abdominal pain with some shortness of breath last night. Went to minor care for abdominal distention and shortness of breath. No cough, no fever or chills. Patient reports she went to bed feeling relatively well, feeling a little bloated. Woke up at 1 AM with nausea vomiting multiple episodes she also had several episodes of diarrhea. She also had shortness of breath at that time. She describes the pain as diffuse but worse in the upper abdomen and describes an achy pain. As of breath is improved. Pain better improved with pain medications. Imaging was done which was concerning for possible duodenal ulcer perforation versus more gallbladder related. Gallbladder notably distended on imaging. Dr. Dupont was contacted. Denies any fevers or chills she has no cough. Oxygen saturation 91 to 96% on room air, the imaging concerning for some fibrosis. No recent illnesses. No history of heart failure or pulmonary disease or gallbladder issues. Work-up in the ED showed a mild leukocytosis and a mild elevated lactate. Elevated proBNP and liver enzymes. CT abdomen pelvis showed lung bases with interstitial disease presumably fibrosis as well as intraperitoneal fluid in the periduodenal region concerning for possible duodenal perforation. 6/2 Feeling little better this morning. Was able to sleep last night. Abdominal pain still present but controlled with pain medication. Sitting up in chair on room air. Leukocytosis mildly worse but afebrile and again feeling better. 6/3 Per nurse patient went into A. fib RVR last night up to 140's. Pt completely asymptomatic. Received several doses of IV Lopressor. no new complaints, has mild RUQ abd pain. post-op patient is in sinus rhythm. Discussed the case with [facility] cardiology who recommended diuretic and continue beta burak. Order Zio patch through outpt cardiology services, and f/u with cardiology, hold off on anticoagulation for now. Reviewed the information that I discussed with the awning maker with the patient. She was in agreement even after I discussed stroke risk. She would like to avoid any anticoagulation if possible at this time and would like to follow-up with cardiology before she started up any anticoagulation if necessary. She will continue to take her aspirin 81mg that shes takes as a precautionary measure that was prescribed by her PCP in the past. 6/4 Tolerating full liquid diet. No chest pain shortness of breath or complaints or coughing. A little bit of abdominal discomfort over the incision site but otherwise no other issues. Status post laparoscopic cholecystectomy yesterday. Rhythm is sinus with occasional PVC. 6/ Poor sleep last night. But no other complaints. Tolerating GI soft diet. Heart rate sinus rhythm. ABG in place. Heart rate 50 at time. Will decrease metoprolol. Review of Systems: denies headache/fever/chills/nausea/vomiting/chest pain/cough/dyspnea. Otherwise see above. - Constitutional Vitals: Vital Signs Temp Pulse Resp BP Pulse Ox 97.6 F 53 L 16 131/64 93 08/16/19 04:00 08/16/19 04:00 08/16/19 04:00 08/16/19 04:00 08/16/19 04:00 Period Temp Pulse Resp BP Sys/Sanches Pulse Ox Last 24 Hr 97.3 F-98.5 F 50-66 16-20 102-131/50-64 91-96 Intake and Output 08/15/19 08/16/19 08/16/19 21:59 05:59 13:59 Intake Total 300 500 150 Output Total 440 750 Balance -140 -250 150 Weight 88.224 kg Intake & Output: Intake & Output 08/15/19 08/16/19 08/16/19 21:59 05:59 13:59 Intake Total 300 500 150 Output Total 440 750 Balance -140 -250 150 Weight 88.224 kg Intake: IV 300 150 150 Zosyn 3.375 gm In Dextrose 5% 100 50 50 in Water 50 ml @ 100 mls/hr IV Q6H [facility] Rx#:[id number] Oral 350 Output: Drainage 50 Abdomen 50 Drainage 40 Abdomen 40 Urine Catheter Amount 400 700 Other: Urine Appearance Clear Clear Uretheral (Patricio) Clear Urine Color Bright Yellow Pale Uretheral (Patricio) Bright Yellow Urine Odor Normal Exam: General: Alert, Awake, No acute Distress, obese Eyes/N/T: EOMI, Head/Neck: neck supple, CV: RRR, No murmurs, Pulm: minimal rales left base, no wheezing/rhonchi Abd: soft, mild TTP RUQ/Epigastrium, +BS x4, TORI drain in place Ext: no clubbing/cyanosis/edema Neuro: Alert, no focal deficits, moves all extremities, Skin: warm/dry Medical - PN: Obj Da - Labs CBC & Chem 7: 08/16/19 05:03 08/16/19 05:03 Labs: Abnormal Lab Results 08/16/19 08/15/19 08/15/19 05:03 05:06 05:06 WBC 11.1 H MPV 12.0 H 11.9 H Gran % 82.1 H Lymph % (Auto) 10.0 L Gran # 9.11 H Lymph # (Auto) 1.11 L Hidalgo # (Auto) Potassium Carbon Dioxide 21 L Glucose 140 H Calcium 8.2 L Phosphorus GGT 96 H AST 58 H ALT 88 H Lactate Dehydrogenase NT-Pro-B Natriuret Pep Albumin 3.0 L Triglycerides 153 H 08/14/19 08/14/19 08/13/19 04:56 04:56 04:57 WBC 11.5 H MPV 11.9 H Gran % Lymph % (Auto) Gran # 8.44 H Lymph # (Auto) [place]go # (Auto) 1.00 H Potassium 3.2 L Carbon Dioxide 19 L Glucose 116 H 134 H Calcium 8.4 L Phosphorus 2.3 L GGT 93 H 101 H AST 60 H 107 H ALT 97 H 119 H Lactate Dehydrogenase 303 H NT-Pro-B Natriuret Pep 5289.0 H 5846.0 H Albumin Triglycerides 08/13/19 04:57 WBC 14.4 H MPV 11.8 H Gran % 84.9 H Lymph % (Auto) 9.2 L Gran # 12.22 H Lymph # (Auto) 1.32 L [place]go # (Auto) Potassium Carbon Dioxide Glucose Calcium Phosphorus GGT AST ALT Lactate Dehydrogenase NT-Pro-B Natriuret Pep Albumin Triglycerides Meds: Medications Enoxaparin Sodium (Lovenox) 40 mg SQ DAILY [facility] Last Admin: 08/15/19 08:12 Dose: 40 mg Documented by: Furosemide (Lasix) 40 mg PO DAILY [facility] Diltiazem HCl 125 mg/ Dextrose 125 mls @ 5 mls/hr IV PRN PRN; Protocol PRN Reason: Tachyarrhythmias Acetaminophen (Ofirmev) 1,000 mg in 100 mls @ 200 mls/hr IV Q6HP PRN; Protocol PRN Reason: PAIN/FEVER > 101 Last Infusion: 08/16/19 06:00 Dose: Infused Documented by: Piperacillin Sod/Tazobactam (Sod 3.375 gm/ Dextrose) 50 mls @ 100 mls/hr IV Q6H [facility]; Protocol Last Infusion: 08/16/19 06:45 Dose: Infused Documented by: Metoprolol Tartrate (Lopressor) 12.5 mg PO BID [facility] Last Admin: 08/15/19 20:51 Dose: 12.5 mg Documented by: Ondansetron HCl (Zofran) 4 mg IV Q6HP PRN PRN Reason: Nausea And Vomiting Potassium Chloride (Kdur) 20 meq PO BIDCC [facility] Last Admin: 08/15/19 17:52 Dose: 20 meq Documented by: Sodium Chloride (Saline Flush) 10 ml IV Q8 [facility] Last Admin: 08/16/19 05:53 Dose: 10 ml Documented by: Zolpidem Tartrate (Ambien) 5 mg PO HSP PRN PRN Reason: Insomnia Medical - PN: A/P - Time Spent With Patient Total time spent is greater than 50% in coordination of care (as documented) at patient's floor/unit and/or counseling patient: - Narrative A/P Narrative: A: *Acute Cholecystitis: s/p Lap carol (08/13), TORI drain in place -leukocytosis improving *Acute on likely chronic systolic/diastolic chronic CHF: -echo with EF 45-50%, basal segments hypokinetic, diastolic grade I dysfxn *Pleural effusions b/l: 2/2 abdominal process + CHF -on room air while awake *AFib rvr: asymptomatic, given the lack of symptoms this may be a paroxysmal case of unknown duration -NSR post-op *Obesity: *Transaminitis: 2/2 abdominal process *Depression: P: -Zosyn to augmentin -Dr. Dupont on case -BB, Diuretic -Discussed the case with [facility] cardiology who recommended diuretic and continue beta burak. Order Zio patch through outpt cardiology services, and f/u with [facility] rdiology, hold off on anticoagulation for now -will need Zio Patch or Holter if unable to obtain -IS, monitor pulmonary status -may need thoracentesis if need supp oxygen? -Diet per Surgery - -cont SSRI -f/u with cardiology -ppx: lovenox DNR Medical - PN: Qual - Stroke Symptom Onset Unknown: No - VTE Deep Vein Thrombosis/Pulmonary Embolism Present on Admission: No
[2019-08-16 07:36] LABS: ALT/SGPT 82 U/l (0-40); AST/SGOT 56 U/l (0-37); Albumin 3.1 gm/dL (3.2-5.2); Albumin/Globulin Ratio 1.2 (1.0-2.3); Alkaline Phosphatase 72 U/L (39-117); Bilirubin,Direct < 0.2 mg/dL (0.0-0.3); Bilirubin,Total 0.5 mg/dL (0.0-1.0); Blood Urea Nitrogen 14 mg/dl (8-23); Calcium 8.5 mg/dl (8.6-10.4); Carbon Dioxide 20 mmol/L (22-30); Chloride 107 mmol/L (96-108); Globulin 2.5 gm/dL (2.2-3.7); Glomerular Filtration Rate 63; Glucose 98 mg/dL (70-105); Lactate Dehydrogenase 251 U/L (94-250); Phosphorous 2.5 mg/dL (2.7-4.5); Triglycerides 164 mg/dl (<150); Uric Acid 3.8 mg/dL (2.5-8.0)
[2019-08-16] MEDS ORDERED: AMOXICILLIN/POTASSIUM CLAV 875 MG TABLET PO SCH (08:00)
[2019-08-16] MEDS: ENOXAPARIN 40 MG/0.4 ML SYRINGE SQ SCH (08:54)
[2019-08-16] MEDS: POTASSIUM CHLORIDE 20 MEQ TABLET PO SCH (08:55)
[2019-08-16] MEDS ORDERED: FUROSEMIDE 40 MG TABLET PO SCH (09:00)
[2019-08-16] MEDS ORDERED: LACTOBACILLUS 1 CAPSULE PO SCH (09:00)
[2019-08-16] MEDS ORDERED: METOPROLOL SUCCINATE 25 MG TAB.XL.24H PO SCH (09:00)
--- NOTE | 2019-08-19 11:55 | Operative Note ---
DATE OF OPERATION: 08/14/2019 PREOPERATIVE DIAGNOSIS: Acute cholelithiasis with cholecystitis. POSTOPERATIVE DIAGNOSIS: Acute gangrenous cholecystitis with cholelithiasis. PROCEDURE: Laparoscopic cholecystectomy. SURGEON: Lorene Dupont M.D. FINDINGS: Acute severe inflammation of gallbladder with wall necrosis and multiple stones. DESCRIPTION OF PROCEDURE: Under general anesthesia, the patient's abdomen was prepped and draped in the sterile field. Supraumbilical incision was made. Veress needle was inserted. Abdomen was insufflated with 2.3 liters of CO2. A 12 mm port was placed. Laparoscope was placed. The gallbladder was covered with omentum. Under videoscopic guidance, a 12 mm port and two 5 mm ports were placed. Using the Kitner dissector, the omentum was from the dome of the gallbladder. There were dark black and green spotty areas of the gallbladder with severe thickened wall compatible with significant gangrenous changes. The gallbladder was completely dissected from the omentum and colon. It was then decompressed with a Weck needle. It was grasped. Infundibulum was dissected. Because of the inflammation, the dissection was very easy and was mostly done bluntly. Cystic duct and cystic artery were dissected and followed back to the wall of the gallbladder. Cystic duct was short and very thick and would not hold opal, so it was transected at its junction with the gallbladder wall using the Endo MAXIMUS stapler. The cystic artery branch was clipped with four clips on the wall of the gallbladder and divided. The gallbladder was then primarily removed by blunt dissection. Electrocautery on very thickened areas was used in a few areas. Dissection was carried out, and the gallbladder was removed in its entirety. It was placed in an Endopouch and retrieved. Irrigation was carried out. There was slightly oozing, so a Skinny drain was placed in the bed of the gallbladder. It was brought out through the most lateral incision. More irrigation was carried out and the fluid was primarily clear. CO2 was allowed to escape from the abdomen and the ports were removed. Fascia at the umbilicus was closed with 0 Vicryl. Skin incisions were closed with opal. Drain was secured with 2-0 nylon. Tegaderm dressings were placed. The patient tolerated the procedure well. She was awakened, transferred to a bed, and taken to the postanesthetic care unit in satisfactory condition. LCS:elisabeth Job ID: [id number] Doc ID: [id number] Lorene Dupont M.D.
== END 2019-08-16 15:55 | disposition home or self-care (01) | DRG 417 ==
LOC: ED 14:31 → MEDSUR 19:46
PROVIDERS: ADMIT Family Medicine Adult Medicine; ATTEND Internal Medicine